=== PATIENT | female | born 1990 | race Caucasian/White ===

== ENCOUNTER 2022-05-17 10:50 | Inpatient (IN) | payer OTHER, SELFPAY ==
[2022-05-17] VITALS (59 sets, daily range): BP systolic 88–107; BP diastolic 51–74; PULSE 80–120; RESP 17–26; TEMP 36.5–37.9; O2SAT 94–100; BMI 28.3; BMI 29.7
--- NOTE | 2022-05-17 11:37 | W.ED.BACK ---
HPI - Back Pain/Injury General: Chief Complaint: Back Pain/Injury Stated Complaint: Extreme lower back pain and throwing up Time Seen by Provider: 05/17/22 11:30 History of Present Illness: 31-year-old female presents with left low back flank pain that now rates into her her right side into her abdomen. She reports that started 4 days ago. That couple days ago she had some vomiting and then improved and then yesterday she started vomiting again and vomited throughout the night in route here today. Patient has had difficulty keep anything down for the last couple days. She has no reports of fever or chills. No reports of diarrhea. Patient family reports that her mom has a history of kidney stones but no known kidney stones with patient. Associated symptoms: Reports abdominal pain, nausea and vomiting; Deny chills, fever(s) or hematuria Review of Systems Const: Reports: malaise; Denies: fever(s) or chills Eyes: Denies: change in vision ENMT: Denies: throat pain or ear or mastoid pain Card: Denies: chest pain or palpitations Resp: Denies: dyspnea, productive cough or wheezing GI: Reports: abdominal pain, nausea and vomiting; Denies: diarrhea : Reports: flank pain; Denies: hematuria Musc: Reports: back pain; Denies: neck pain or extremity pain Skin/Breast: Denies: rash or pruritus Neuro: Denies: headache(s) or dizziness Physical Exam Const: COMMON NORMALS: average body habitus GENERAL APPEARANCE: not comfortable HENMT: COMMON NORMALS: hearing grossly normal bilaterally and moist oral mucous membranes Chest: COMMONS NORMALS: normal inspection of the chest Resp: COMMON NORMALS: normal respiratory effort, No retractions and No use of accessory muscles Cardio: COMMON NORMALS: regular rate and regular rhythm RATE: regular rate RHYTHM: regular rhythm GI: PALPATION: Yes Tenderness to palpation present (GI) (Mild diffuse) : BLADDER/KIDNEY EXAM: Yes CVA tenderness bilateral Back/Pelvis: GENERAL BACK: Yes CVA tenderness Extremity: COMMON NORMALS: full ROM and capillary refill normal Neuro: COMMON NORMALS: moves all extremities and no focal motor deficits Psych: APPEARANCE: Yes grossly normal Skin: RASHES: rashes noted Multiple diffuse excoriations Rash type: Yes excoriation Rash distribution: Yes random Course Vital Signs: Vital signs: Vital Signs Temperature 97.7 F 05/17/22 11:01 Pulse Rate 97 05/17/22 13:32 Respiratory Rate 17 05/17/22 13:32 Blood Pressure 95/59 05/17/22 13:30 Pulse Oximetry 100 05/17/22 13:30 Oxygen Delivery Me thod 05/17/22 11:51 MDM - Back Pain/Injury Medical Decision Making Patient with acute pyelonephritis with acute kidney failure. Patient is given IV fluids, IV Rocephin. CT scan shows pyelonephritis with no other significant abnormality noted. Patient with elevated white count, procalcitonin and CRP but lactic is only 2. Patient to be admitted for further IV hydration and IV antibiotics. Patient was accepted by Dr. Rebollar. Patient was stable upon admission. Labs 05/17/22 11:41 05/17/22 11:41 Radiology Impressions Abdomen/Pelvis CT 05/17/22 12:33 IMPRESSION: Right perinephric stranding which can be a sign of acute pyelonephritis. Laboratory Results WBC 15.0 10^3/uL (4.0-10.0) H 05/17/22 11:41 RBC 4.37 10^6/uL (4.1-5.3) 05/17/22 11:41 Hgb 13.6 g/dL (11.5-15.3) 05/17/22 11:41 Hct 40.1 % (37.0-47.0) 05/17/22 11:41 MCV 91.8 fl (81-99) 05/17/22 11:41 MCH 31.1 pg (28.0-34.0) 05/17/22 11:41 MCHC 33.9 g/dL (30.0-36.0) 05/17/22 11:41 RDW 11.8 % (12.1-15.1) L 05/17/22 11:41 Plt Count 216 10^3/cmm (130-400) 05/17/22 11:41 MPV 10.4 fL (7.4-10.4) 05/17/22 11:41 Neut % (Auto) 93.2 % 05/17/22 11:41 Lymph % (Auto) 2.7 % 05/17/22 11:41 [place] % (Auto) 2.8 % 05/17/22 11:41 Eos % (Auto) 0.1 % 05/17/22 11:41 Baso % (Auto) 0.5 % 05/17/22 11:41 Neut # (Auto) 13.96 10^3/uL (1.8-7.7) H 05/17/22 11:41 Lymph # (Auto) 0.4 10^3/uL (0.8-4.8) L 05/17/22 11:41 [place] # (Auto) 0.4 10^3/uL (0.2-0.9) 05/17/22 11:41 Eos # (Auto) 0.0 10^3/uL (0.0-0.8) 05/17/22 11:41 Baso # (Auto) 0.1 10^3/uL (0.0-0.1) 05/17/22 11:41 Nucleated RBC % (auto) 0 % 05/17/22 11:41 Nucleated RBCs # 0.0 /100WBC 05/17/22 11:41 Sodium 128 mmol/L (136-145) L 05/17/22 11:41 Potassium 3.7 mmol/L (3.5-5.1) 05/17/22 11:41 Chloride 86 mmol/L (98-107) L 05/17/22 11:41 Carbon Dioxide 23 mmol/L (22-29) 05/17/22 11:41 Anion Gap 22.7 (5-19) H 05/17/22 11:41 BUN 36 mg/dL (6-20) H 05/17/22 11:41 Creatinine 5.6 mg/dL (0.5-0.9) H* 05/17/22 11:41 GFR Calculation 8.7 mL/min (90-130) L 05/17/22 11:41 Glucose 111 mg/dL (65-115) 05/17/22 11:41 Calculated Osmolality 275 mOsm/kg (285-295) L 05/17/22 11:41 Lactate 2.0 mmol/L (0.5-2.2) 05/17/22 11:41 Calcium 9.4 mg/dL (8.5-10.5) 05/17/22 11:41 Total Bilirubin 0.9 mg/dL (0.15-1.2) 05/17/22 11:41 AST 22 U/L (0-32) 05/17/22 11:41 ALT 24 U/L (0-33) 05/17/22 11:41 Alkaline Phosphatase 140 U/L (35-105) H 05/17/22 11:41 C-Reactive Protein 630.8 mg/L (0.0-4.9) H 05/17/22 11:41 Total Protein 7.9 g/dL (6.6-8.7) 05/17/22 11:41 Albumin 3.6 g/dL (3.5-5.2) 05/17/22 11:41 Globulin 4.3 g/dL (1.3-4.6) 05/17/22 11:41 Procalcitonin 23.75 ng/mL (0-0.5) H 05/17/22 11:41 HCG, Qual Negative (Negative) 05/17/22 12:06 Urine Color Yellow (Yellow) 05/17/22 12:06 Urine Appearance Cloudy (CLEAR) A 05/17/22 12:06 Urine pH 5 (5-7) 05/17/22 12:06 Ur Specific Richardson 1.020 (1.005-1.030) 05/17/22 12:06 Urine Protein 3+ (Negative) H 05/17/22 12:06 Urine Glucose (UA) Norm (Normal) 05/17/22 12:06 Urine Ketones Negative (Negative) 05/17/22 12:06 Urine Blood 2+ (Negative) H 05/17/22 12:06 Urine Nitrate Negative (Negative) 05/17/22 12:06 Urine Bilirubin 1+ (Negative) H 05/17/22 12:06 Urine Urobilinogen 1 mg/dL (Negative) H 05/17/22 12:06 Ur Leukocyte Esterase 1+ (Negative) H 05/17/22 12:06 Urine RBC 0-4 /hpf (0-2) H 05/17/22 12:06 Urine WBC 15-25 /hpf (0-5) H 05/17/22 12:06 Ur Squamous Epith Cells 0-4 /hpf (0-5) H 05/17/22 12:06 Amorphous Sediment Not Reportable 05/17/22 12:06 Urine Bacteria 4+ /hpf (NONE) H 05/17/22 12:06 Discharge Plan Discharge Patient Disposition: Admitted As Inpatient Clinical Impression: Pyelonephritis, Acute kidney injury Condition: Stable Coding Level of Care Code ED Hair Spring Cutter for Chg Fwd Exam Comprehensive
[2022-05-17] MEDS: metoclopramide 5 mg/mL SDV 2 mL 10 MG IVP (11:44)
[2022-05-17] MEDS: ketorolac 30 mg/mL INJ 15 MG IVP (11:46)
[2022-05-17] MEDS: lactated ringers 1,000 ML 999 ML IV ×2 (11:48→13:18)
[2022-05-17 12:00] LABS: Basophils # 0.1 10^3/uL (0.0-0.1); Basophils % 0.5 %; Eosinophils % 0.1 %; Hematocrit 40.1 % (37.0-47.0); Hemoglobin 13.6 g/dL (11.5-15.3); Lymphocytes # 0.4 10^3/uL (0.8-4.8); Lymphocytes % 2.7 %; Mean Corpuscular HGB Conc 33.9 g/dL (30.0-36.0); Mean Corpuscular Hemoglobin 31.1 pg (28.0-34.0); Mean Corpuscular Volume 91.8 fl (81-99); Mean Platelet Volume 10.4 fL (7.4-10.4); Monocytes # 0.4 10^3/uL (0.2-0.9); Monocytes % 2.8 %; Neutrophils # 13.96 10^3/uL (1.8-7.7); Neutrophils % 93.2 %; Nucleated Red Blood Cells % 0 %; Platelet Count 216 10^3/cmm (130-400); Red Blood Count 4.37 10^6/uL (4.1-5.3); Red Cell Distribution Width 11.8 % (12.1-15.1)
[2022-05-17 12:21] LABS: Alanine Aminotransferase 24 U/L (0-33); Albumin Level 3.6 g/dL (3.5-5.2); Alkaline Phosphatase 140 U/L (35-105); Anion Gap 22.7 (5-19); Aspartate Amino Transferase 22 U/L (0-32); Blood Urea Nitrogen 36 mg/dL (6-20); Calcium 9.4 mg/dL (8.5-10.5); Carbon Dioxide 23 mmol/L (22-29); Chloride 86 mmol/L (98-107); Globulin 4.3 g/dL (1.3-4.6); Glomerular Filtration Rate 8.7 mL/min (90-130); Glucose 111 mg/dL (65-115); Osmolality Calculated 275 mOsm/kg (285-295); Potassium 3.7 mmol/L (3.5-5.1); Sodium 128 mmol/L (136-145); Total Bilirubin 0.9 mg/dL (0.15-1.2); Total Protein 7.9 g/dL (6.6-8.7)
[2022-05-17 12:25] LABS: Procalcitonin 23.75 ng/mL (0-0.5)
[2022-05-17 12:28] LABS: Add Urine Culture? Yes; Add Urine Microscopic? YES; Bacteria Urine 4+ /hpf; Bilirubin Urine 1+ (Negative); Blood Urine 2+ (Negative); Glucose Urine UA Norm (Normal); HCG Qualitative Urine. Negative (Negative); Ketones Urine Negative (Negative); Leukocyte Esterase Urine 1+ (Negative); Nitrate Urine Negative (Negative); Protein Urine 3+ (Negative); RBC Urine 0-4 /hpf (0-2); Squamous Epithelial Cell Urine 0-4 /hpf (0-5); Urine Appearance Cloudy (CLEAR); Urine Color Yellow (Yellow); Urobilinogen Urine 1 mg/dL (Negative); WBC Urine 15-25 /hpf (0-5); pH Urine 5 (5-7)
--- NOTE | 2022-05-17 12:33 | CTR_ITS ---
PROCEDURE INFORMATION: Exam: CT Abdomen And Pelvis Without Contrast Exam date and time: 05/17/2022 1:08 PM Age: 31 years old Clinical indication: Pain; Other: Across lower back; Prior surgery; Surgery date: 6+ months; Surgery type: Tubal; Additional info: Hematuria, flank pain, concerns for pyelonephritis TECHNIQUE: Imaging protocol: Computed tomography of the abdomen and pelvis without contrast. Radiation optimization: All CT scans at this facility use at least one of these dose optimization techniques: automated exposure control; mA and/or kV adjustment per patient size (includes targeted exams where dose is matched to clinical indication); or iterative reconstruction. COMPARISON: No relevant prior studies available. RADIATION DOSE METRICS: Total DLP (mGy-cm): 654.97 FINDINGS: Lungs: Bilateral dependent atelectasis. Liver: The liver is prominent in size but homogeneous. Gallbladder and bile ducts: No calcified gallstones, gallbladder wall thickening, or pericholecystic inflammation. No biliary ductal dilation. Pancreas: No pancreatic enlargement or ductal dilatation. Spleen: The spleen is prominent in size but homogeneous. Adrenal glands: No adrenal mass. Kidneys and ureters: No hydronephrosis or hydroureter. No renal or ureteral calculus. There is right perinephric stranding, best appreciated adjacent to the inferior pole, which can be a sign of acute pyelonephritis. Stomach and bowel: No bowel obstruction or diverticulitis. Appendix: The appendix is not clearly visualized. Intraperitoneal space: No ascites or pneumoperitoneum. Vasculature: No abdominal aortic aneurysm. Lymph nodes: No pathologically enlarged lymph nodes. Urinary bladder: No urinary bladder calculus or wall thickening. Reproductive: Unremarkable as visualized. Bones/joints: No acute osseous abnormality. Soft tissues: No acute soft tissue abnormality. CT/CT abdomen pelvis wo con [id number] IMPRESSION: Right perinephric stranding which can be a sign of acute pyelonephritis.
[2022-05-17 12:34] LABS: C Reactive Protein 630.8 mg/L (0.0-4.9)
[2022-05-17] MEDS: cefTRIAXone 1,000 MG in sodium chloride 0.9% (plus) 50 ML 100 MG IV (12:52)
--- NOTE | 2022-05-17 14:29 | P.HP_ITS ---
Providers/Chief Complaint Admitting Physician: Rick Rebollar MD Chief Complaint: Extreme lower back pain and throwing up History of Present Illness Ryanne Rico is a 31 year old female with no significant past medical history who presents to [facility] due to fatigue, malaise, right lower back pain, flank pain, nausea, vomiting, inability keep down solids or liquids for the last 48 hours. Reports subjective fevers, chills, nausea, vomiting, no abdominal pain, but does have severe back pain, right flank pain. She does vape, denies drug use, no alcohol use. She has not been Able to keep anything solid or liquid down for the last 24 to 48 hours. She denies being , she has never had UTIs in the past, no history of nephrolithiasis Review of Systems Const: Reports: fever(s), chills and body aches Card: Denies: chest pain Resp: Denies: dyspnea GI: Denies: abdominal pain Medications/Allergies Allergies Allergy/AdvReac Type Severity Reaction Status Date / Time No Known Allergies Allergy Verified 05/17/22 11:01 PFSH Acute PFSH: Surgical History (Updated 05/17/22 @ 14:31 by Rick Rebollar MD) No pertinent past surgical history Family History (Updated 05/17/22 @ 14:31 by Rick Rebollar MD) Other Hypertension Social History (Updated 05/17/22 @ 14:31 by Rick Rebollar MD) Smoking and tobacco status: never smoked Alcohol intake: never Substance/Drug Use: never Vitals/I&O/Wt Last Vital Signs Temp 97.7 F 05/17/22 11:01 Pulse 97 05/17/22 13:32 Resp 17 05/17/22 13:32 BP 95/59 05/17/22 13:30 Pulse Ox 100 05/17/22 13:30 O2 Del Method 05/17/22 11:51 05/16/22 05/17/22 05/17/22 22:59 06:59 14:59 Intake Total 1050 / 1050 Balance 1050 / 1050 Weight last 48 hrs Weight 72.575 kg Physical Exam Const: COMMON NORMALS: no acute distress and patient oriented x3 HENMT: COMMON NORMALS: normocephalic HEAD & SCALP: normocephalic Neck/C-Spine: COMMON NORMALS: no JVD Resp: COMMON NORMALS: normal respiratory effort, No retractions, No use of accessory muscles and clear to auscultation bilaterally AUSCULTATION: clear to auscultation bilaterally Cardio: COMMON NORMALS: no JVD, regular rate, regular rhythm, S1 normal heart sound present and S2 normal heart sound present RATE: regular rate RHYTHM: regular rhythm HEART SOUNDS: S1 normal heart sound present and S2 normal hear t sound present GI: COMMON NORMALS: Normal to inspection, nondistended, normoactive bowel sounds present, Soft to palpation and non-tender PALPATION: Yes Soft to palpation and Yes No hepatosplenomegaly present Back/Pelvis: OTHER: Bilateral flank pain Extremity: COMMON NORMALS: capillary refill normal and no pedal edema Neuro: COMMON NORMALS: patient oriented x3, CN's II-XII intact bilaterally and moves all extremities Psych: COMMON NORMALS: mental status grossly normal Data 05/17/22 11:41 05/17/22 11:41 A&P Assessment and plan (1) Pyelonephritis: (2) Acute kidney injury: Plan Right pyelonephritis, UTI, SAMANTHA -CT scan no evidence of obstructive uropathy, no hydronephrosis -Admit to ICU for close monitoring -Monitor urine output closely -Monitor creatinine monitor serum sodium -Monitor CRP, Pro-Wero -Expand antibiotic coverage to meropenem and vancomycin -mrsa nares pcr -IV hydration 150 cc an hour -Monitor for fevers -Follow urine cultures, blood cultures Attestations Medical Necessity Statement*: Patient requires hospitalization, inpatient, greater than 2 midnights, for pyelonephritis, SAMANTHA Coding Level of Care Code Acute Welder Gas Automatic for [facility] Diagnoses Pyelonephritis N12 Acute kidney injury N17.9
[2022-05-17 14:51] LABS: Estmated Average Glucose 91; Hemoglobin A1C 4.8 % (4.0-6.0)
[2022-05-17 15:00] LABS: Thyroid Stimulating Hormone 1.17 uIU/mL (0.27-4.20)
[2022-05-17] MEDS: ondansetron 2 mg/ML SDV 2 mL 4 MG IVP (15:17)
[2022-05-17 15:21] LABS: Ketone (Acetest) Serum Negative (Negative)
[2022-05-17] MEDS: sodium chloride 0.9% 1,000 ML 125 ML IV ×2 (15:22→22:30)
[2022-05-17] MEDS: pantoprazole 40 mg SDV IVP (15:22)
[2022-05-17] MEDS: enoxaparin 40 mg/0.4 mL Syringe SUBCUT (15:23)
[2022-05-17] MEDS: meropenem 1,000 MG in sodium chloride 0.9% (plus) 50 ML 100 MG IV ×2 (15:24→22:30)
[2022-05-17] MEDS: acetaminophen 325 mg Tablet 650 MG PO ×2 (15:27→23:27)
[2022-05-17 15:35] LABS: Creatine Phosphokinase 26 U/L (26-192)
[2022-05-17] MEDS: vancomycin 1,000 MG in sodium chloride 0.9% 250 ML 250 MG IV (15:49)
--- NOTE | 2022-05-17 16:08 | PC.NURSE ---
Patient came to ICU at 1515 via gurney and ER staff. Patient is alert and oriented to person, place, time, and situation. HR: 97, BP: 104/65, RR: 20, saturation: 100%, Temp: 98.1. Patient complains of pain 4 or 5/10. Tylenol given. Patient complains of nausea, Zofran given. Fluids and antibiotics started, patient educated on treatment plan.
--- NOTE | 2022-05-17 17:28 | PC.NURSE ---
Late note.... Patient has not voided since 1230 in the ER when a straight cath was performed. Nurse Bladder scanned patient at 1430. SHows 63 mL of urine retained.
--- NOTE | 2022-05-17 18:29 | PC.NURSE ---
Nurse bladder scanned patient at 1830. SHows 53mL retained. A distended bladder is not palpated, patient does not report any urinary discomfort.
[2022-05-17] MEDS: morphine 4 mg/mL SDV 1 mL 2 MG IVP (19:10)
[2022-05-18] VITALS (55 sets, daily range): BP systolic 89–127; BP diastolic 47–84; PULSE 100–128; RESP 12–35; TEMP 36.7–38.3; O2SAT 92–100
[2022-05-18] MEDS: morphine 4 mg/mL SDV 1 mL 2 MG IVP ×6 (00:58→23:03)
--- NOTE | 2022-05-18 04:12 | PC.NURSE ---
Patient assisted to bedside commode by two nurses. Patient is very weak but was able to pivot to seat with assist. Patient voided 200 dark flory foul smelling urine with sediment. Patient complained of pain while urinating.
[2022-05-18 05:47] LABS: Basophils % 0.5 %; Eosinophils % 0.6 %; Hematocrit 32.7 % (37.0-47.0); Hemoglobin 10.7 g/dL (11.5-15.3); Lymphocytes # 0.2 10^3/uL (0.8-4.8); Lymphocytes % 3.2 %; Mean Corpuscular HGB Conc 32.7 g/dL (30.0-36.0); Mean Corpuscular Hemoglobin 31.2 pg (28.0-34.0); Mean Corpuscular Volume 95.3 fl (81-99); Mean Platelet Volume 10.4 fL (7.4-10.4); Monocytes # 0.4 10^3/uL (0.2-0.9); Monocytes % 5.7 %; Neutrophils # 5.77 10^3/uL (1.8-7.7); Neutrophils % 88.6 %; Nucleated Red Blood Cells % 0 %; Platelet Count 121 10^3/cmm (130-400); Red Blood Count 3.43 10^6/uL (4.1-5.3); Red Cell Distribution Width 12.3 % (12.1-15.1); White Blood Count 6.5 10^3/uL (4.0-10.0)
[2022-05-18] MEDS: meropenem 1,000 MG in sodium chloride 0.9% (plus) 50 ML 100 MG IV ×3 (06:02→23:04)
[2022-05-18] MEDS: sodium chloride 0.9% 1,000 ML 125 ML IV ×2 (06:03→14:16)
[2022-05-18 06:09] LABS: Anion Gap 19.7 (5-19); Blood Urea Nitrogen 43 mg/dL (6-20); Calcium 7.9 mg/dL (8.5-10.5); Carbon Dioxide 16 mmol/L (22-29); Chloride 94 mmol/L (98-107); Glomerular Filtration Rate 10.2 mL/min (90-130); Glucose 92 mg/dL (65-115); Magnesium 1.4 mg/dL (1.7-2.3); Osmolality Calculated 272 mOsm/kg (285-295); Phosphorus 4.6 mg/dL (2.5-4.5); Potassium 3.7 mmol/L (3.5-5.1); Sodium 126 mmol/L (136-145)
[2022-05-18 06:16] LABS: Procalcitonin 20.96 ng/mL (0-0.5)
--- NOTE | 2022-05-18 07:48 | USR_ITS ---
PROCEDURE INFORMATION: Exam: US Retroperitoneal; Complete; Kidneys and Bladder Exam date and time: 05/18/2022 9:43 AM Age: 31 years old Clinical indication: Abnormal findings; Abnormal radiologic finding of the abdomen; Radiologic exam and body structure: CT abd; Additional info: Perry TECHNIQUE: Imaging protocol: Real-time ultrasound of the retroperitoneum with image documentation. Complete exam focused on the kidneys and bladder. COMPARISON: CT abdomen pelvis con [id number] 05/17/2022 1:08 PM FINDINGS: Right kidney: Normal. No stones. No hydronephrosis. 13.7 cm x 5.3 cm x 7.1 cm Left kidney: Normal. No stones. No hydronephrosis. 12.9 cm x 5.3 cm x 5.9 cm Urinary bladder: Unremarkable. Bilateral ureteral jets are visible US/US renal BI* [id number] IMPRESSION: Unremarkable kidneys and bladder.
[2022-05-18] MEDS: acetaminophen 325 mg Tablet 650 MG PO (08:22)
[2022-05-18] MEDS: magnesium sulfate premix 4 GM/100 ML PREMIX IV (08:59)
[2022-05-18] MEDS: ondansetron 2 mg/ML SDV 2 mL 4 MG IVP ×2 (09:09→19:43)
--- NOTE | 2022-05-18 09:56 | PM.CONSULT ---
Providers/Reason For Consult Consulting Physician/Specialty*: Juju Buck DO, telenephrology Reason for Consult*: Acute kidney injury, pylelonephritis, hyponatremia Requesting Physician: Rick Rebollar MD Attending Physician: Rick Rebollar MD History of Present Illness History of Present Illness Ryanne Rico is a 31 year old female admitted with severe back pain, minimal oral intake for a couple of days. No prescribed meds as oupatient. Was taking one ibuprofen + tylenol daily. Diagnosed with pyelonephritis. Minimal urine output. Review of Systems Narrative: severe back pain Medications/Allergies Home Medications Medication Instructions Recorded Confirmed Last Taken Type No Known Home Medications 05/17/22 05/17/22 Unknown History Allergies Allergy/AdvReac Type Severity Reaction Status Date / Time No Known Allergies Allergy Verified 05/17/22 11:01 Current Medications Generic Name Dose Route Start Last Admin Trade Name Freq PRN Reason Stop Dose Admin Acetaminophen 650 mg 05/17/22 14:06 05/18/22 08:22 Acetaminophen 325 Mg Tablet PO 650 mg Q6H PRN Administration Mild/Mod Pain Or Temp >/= 101 Enoxaparin Sodium 40 mg 05/17/22 15:00 05/17/22 15:23 Enoxaparin 40 Mg/0.4 Ml Syringe SUBCUT 40 mg Q24H ANUSHA Administration Sodium Chloride 1,000 mls @ 125 mls/hr 05/17/22 14:37 05/18/22 06:03 Sodium Chloride 0.9% IV 125 mls/hr .Q8H ANUSHA Administration Meropenem 1,000 mg/ Sodium 50 mls @ 100 mls/hr 05/17/22 15:00 05/18/22 07:05 Chloride IV Infused Q8H ANUSHA Infusion Vancomycin HCl 1,000 mg/ 250 mls @ 250 mls/hr 05/17/22 16:00 05/18/22 00:19 Sodium Chloride IV Infused Q48H ANUSHA Infusion Magnesium Sulfate 4 gm in 100 mls @ 50 mls/hr 05/18/22 08:30 05/18/22 08:59 Magnesium Sulfate Premix IV 05/18/22 10:29 50 mls/hr ONCE ONE Administration Morphine Sulfate 2 mg 05/18/22 08:31 05/18/22 09:04 Morphine 4 Mg/Ml Sdv 1 Ml IVP 2 mg Q2H PRN Administration SEVERE PAIN Ondansetron HCl 4 mg 05/17/22 14:22 05/18/22 09:09 Ondansetron 2 Mg/Ml Sdv 2 Ml IVP 4 mg Q8H PRN Administration vomiting, or N/V if npo Pantoprazole Sodium 40 mg 05/17/22 14:30 05/17/22 15:22 Pantoprazole 40 Mg Sdv IVP 40 mg Q24H ANUSHA Administration PFSH Acute PFSH: Surgical History No pertinent past surgical history Family History Other Hypertension Social History Smoking and tobacco status: never smoked Alcohol intake: never Substance/Drug Use: never Vitals/I&O/Wt Last Vital Signs Temp 101.0 F H 05/18/22 08:00 Pulse 116 H 05/18/22 08:00 Resp 20 H 05/18/22 09:04 BP 109/69 05/18/22 08:00 Pulse Ox 98 05/18/22 08:00 O2 Del Method 05/18/22 08:00 05/17/22 05/18/22 05/18/22 22:59 06:59 14:59 Intake Total 1321.667 / 3371.667 1483.75 / 4855.417 250 / 250 Output Total 200 / 200 Balance 1321.667 / 3371.667 1283.75 / 4655.417 250 / 250 Weight last 48 hrs Weight 78.471 kg Weight 72.575 kg Physical Exam Const: COMMON NORMALS: alert Resp: COMMON NORMALS: clear to auscultation bilaterally AUSCULTATION: clear to auscultation bilaterally Cardio: COMMON NORMALS: regular rhythm RATE: tachycardic RHYTHM: regular rhythm Extremity: OTHER: no edema Neuro: SENSORIUM/ORIENTATION: Yes alert Data 05/18/22 05:43 05/18/22 05:43 Other Labs: CK 26, LFT normal, lactate 1.6 Ca 7.9, phos 4.6, Mg 1.4 Micro: Microbiology 05/17/22 12:06 Urine Culture - Preliminary Urine,Clean Catch Gram Negative Rods 05/17/22 16:07 Blood Culture - Preliminary Blood SPECIMEN COLLECTED 05/17/22 16:00 Blood Culture - Preliminary Blood SPECIMEN COLLECTED CT Abd/Pel: Radiologist's impression: Kidneys and ureters: No hydronephrosis or hydroureter. No renal or ureteral calculus. There is right perinephric stranding, best appreciated adjacent to the inferior pole, which can be a sign of acute pyelonephritis. Other data: seen via telemedicine with assistance of RN at bedside A&P Assessment and plan (1) Acute kidney injury: Plan 1. Acute kidney injury: volume depletion + sepsis, oliguric. I/O + 5L 2. Pyelonephritis: GNR, ID and sensitivities pending, remains febrile 3. Hyponatremia 4. Metabolic acidosis Recommend: urine Na/Cr, michaels, renal ultrasound. F/U culture. Can discontinue vancomycin. consider one dose aminoglycoside while awaiting culture results. Renal ultrasound ordered. Repeat BMP later today Consult Attestations Medical Necessity Statement: critically ill in ICU Time Spent in Patient Care: 16 - 35 minutes Coding Level of Care Code Acute Operator Electronic Warfare for [facility] Diagnoses Acute kidney injury N17.9
[2022-05-18 10:22] LABS: Lactic Sepsis W/Reflex 1.6 mmol/L (0.5-2.2)
[2022-05-18 11:48] LABS: Creatinine Urine, Random 146 mg/dL (28-217); Urine Random Sodium 32 mmol/L
--- NOTE | 2022-05-18 12:43 | PC.NURSE ---
Patient self administered flu swab after much encouragement, bleeding from nostril. Sample sent to lab. Unable to obtain COVID swab due to patient refusal.
[2022-05-18 13:03] LABS: Influenza A by IFA negative (Negative); Influenza B by IFA negative (Negative)
--- NOTE | 2022-05-18 13:41 | PC.NURSE ---
16 F, Contreras catheter placed. 20ml dark, cloudy urine returned. Patient expressed much discomfort during placement.
[2022-05-18] MEDS: pantoprazole 40 mg SDV IVP (14:15)
[2022-05-18] MEDS: enoxaparin 40 mg/0.4 mL Syringe SUBCUT (15:50)
--- NOTE | 2022-05-18 15:53 | P.PN_ITS ---
Subjective Subjective: Patient was seen this morning she is alert oriented x2, she is a bit more confused compared to yesterday, but can follow commands, she has a lot of back pain, her urine output remains a little below 200 cc in the last shift, at bedside, discussed the case in detail with him, will consult n ephrology, we will see how she does but she potentially might require dialysis but will continue to monitor her Vitals/I&O/Wt Last Vital Signs Temp 98.1 F 05/18/22 12:30 Pulse 117 H 05/18/22 14:59 Resp 12 05/18/22 14:15 BP 106/65 05/18/22 12:30 Pulse Ox 99 05/18/22 14:15 O2 Del Method 05/18/22 12:30 05/18/22 05/18/22 05/18/22 06:59 14:59 22:59 Intake Total 1483.75 / 4855.417 1574 / 1574 Output Total 200 / 200 120 / 120 Balance 1283.75 / 4655.417 1454 / 1454 Weight last 48 hrs Weight 78.471 kg Weight 72.575 kg Physical Exam Const: COMMON NORMALS: no acute distress ORIENTATION/CONSCIOUSNESS: Yes awake, Yes oriented to person and Yes oriented to place; not oriented to time Resp: COMMON NORMALS: normal respiratory effort, No retractions, No use of accessory muscles and clear to auscultation bilaterally AUSCULTATION: clear to auscultation bilaterally Cardio: COMMON NORMALS: regular rate, regular rhythm, S1 normal heart sound present and S2 normal heart sound present RATE: regular rate RHYTHM: regular rhythm HEART SOUNDS: S1 normal heart sound present and S2 normal heart sound present GI: COMMON NORMALS: Normal to inspection, nondistended, normoactive bowel sounds present and non-tender Extremity: COMMON NORMALS: no pedal edema Neuro: SENSORIUM/ORIENTATION: Yes oriented to person, Yes oriented to place and No oriented to time Urinary Catheter Management: Contreras: Cath Placed During This Visit: yes Urinary Catheter Date of Insertion: 05/18/22 Urinary Catheter Time of Insertion: 12:15 Data 05/18/22 05:43 05/18/22 05:43 Micro: Microbiology 05/17/22 12:06 Urine Culture - Preliminary Urine,Clean Catch Gram Negative Rods 05/17/22 16:07 Blood Culture - Preliminary Blood SPECIMEN COLLECTED 05/17/22 16:00 Blood Culture - Preliminary Blood SPECIMEN COLLECTED A&P Assessment and plan (1) Pyelonephritis: (2) Acute kidney injury: Plan Right pyelonephritis, UTI, SAMANTHA -CT scan no evidence of obstructive uropathy, no hydronephrosis -Admit to ICU for close monitoring -Monitor urine output closely -Monitor creatinine monitor serum sodium -Monitor CRP, Pro-Wero -Expand antibiotic coverage to meropenem and vancomycin -mrsa nares pcr -IV hydration 125 cc an hour -Repeat renal ultrasound, consult nephrology -Monitor for fevers -Follow urine cultures, blood cultures Attestations Medical Necessity Statement*: Patient requires hospitalization for SAMANTHA, right pyelonephritis Coding Level of Care Code Acute 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
[2022-05-18 16:03] LABS: Anion Gap 16.5 (5-19); Blood Urea Nitrogen 45 mg/dL (6-20); Calcium 8.1 mg/dL (8.5-10.5); Carbon Dioxide 20 mmol/L (22-29); Chloride 90 mmol/L (98-107); Glucose 100 mg/dL (65-115); Osmolality Calculated 268 mOsm/kg (285-295); Potassium 3.5 mmol/L (3.5-5.1); Sodium 123 mmol/L (136-145)
[2022-05-18] MEDS: HYDROmorphone 1 mg/mL INJ 1 mL 0.5 MG IVP ×2 (17:42→19:58)
[2022-05-18] MEDS: linezolid premix 600 MG/300 ML PREMIX 300 MG IV (18:00)
[2022-05-18 18:03] LABS: Amphetamines Screen Urine Positive (Negative); Barbiturates Screen Urine Negative (Negative); Benzodiazepines Screen Urine Negative (Negative); Cocaine Screen Urine Negative (Negative); Opiate Screen Urine Positive (Negative); PCP Screen Urine Negative (Negative); THC Screen Urine Negative (Negative)
[2022-05-18 21:28] LABS: Sodium 124 mmol/L (136-145)
--- NOTE | 2022-05-18 22:06 | PC.NURSE ---
Pt continues to be in severe pain. Pt and family expressed that they did not want Dilaudid q2h because they feel like it does not help. Pt and @bedside requested that they switch back to the Morphine q2h. This RN explained that Dilaudid is stronger than Morphine and the pt states that she beleives the Dilaudid is causing her pain to get worse. This RN educated pt and family on the disease process. Dr. Cummins made aware of the situation.
[2022-05-19] VITALS (52 sets, daily range): BP systolic 96–127; BP diastolic 57–85; PULSE 79–124; RESP 13–28; TEMP 36.3–37.4; O2SAT 87–100
[2022-05-19 01:39] LABS: Sodium 125 mmol/L (136-145)
[2022-05-19] MEDS: morphine 4 mg/mL SDV 1 mL 2 MG IVP ×2 (03:04→05:45)
[2022-05-19] MEDS: sodium chloride 0.9% 1,000 ML 60 ML IV ×2 (03:05→23:13)
--- NOTE | 2022-05-19 04:42 | PM.PN ---
Subjective Subjective: feeling a little better Vitals/I&O/Wt Last Vital Signs Temp 98.9 F 05/18/22 22:00 Pulse 119 H 05/19/22 00:30 Resp 17 05/19/22 03:04 BP 120/68 05/19/22 00:30 Pulse Ox 94 05/19/22 03:04 O2 Del Method 05/19/22 00:30 05/18/22 05/18/22 05/19/22 14:59 22:59 06:59 Intake Total 1574 / 1574 2164.583 / 3738.583 585.417 / 4324.000 Output Total 120 / 120 150 / 270 Balance 1454 / 1454 2014.583 / 3468.583 585.417 / 4054.000 Weight last 48 hrs Weight 78.471 kg Weight 72.575 kg Physical Exam Const: COMMON NORMALS: alert Extremity: GENERAL: Yes edema Neuro: SENSORIUM/ORIENTATION: Yes alert Urinary Catheter Management: Contreras: Cath Placed During This Visit: yes Reason for Continuing Indwelling Catheter: Accurate Measurement of Urinary Output in Critically Ill Patients Urinary Catheter Date of Insertion: 05/18/22 Urinary Catheter Time of Insertion: 12:15 Data 05/18/22 05:43 05/19/22 01:18 Other Labs: FeNa < 1% alb 2, bili 1.5, calcium 7.7, phos 3.5, Mg 2.5 Micro: Microbiology 05/17/22 16:00 Blood Culture - Preliminary Blood 05/17/22 16:07 Blood Culture - Preliminary Blood NEGATIVE TO DATE 05/17/22 12:06 Urine Culture - Preliminary Urine,Clean Catch Gram Negative Rods US: Radiologist's impression: Right kidney: Normal. No stones. No hydronephrosis.? 13.7 cm x 5.3 cm x 7.1 cm Left kidney: Normal. No stones. No hydronephrosis.? 12.9 cm x 5.3 cm x 5.9 cm Urinary bladder: Unremarkable.? Bilateral ureteral jets are visible CT Abd/Pel: Radiologist's impression: Kidneys and ureters: No hydronephrosis or hydroureter. No renal or ureteral calculus. There is right perinephric stranding, best appreciated adjacent to the inferior pole, which can be a sign of acute pyelonephritis. A&P Assessment and plan (1) Acute kidney injury: seen via telemedicine with assistance of RN at bedside Plan 1. Acute kidney injury: oliguric. volume depletion + sepsis, I/O + 8L, urine output slightly improved 2. Pyelonephritis: UC e.coli. BC 06/30 staph epi probably contaminant. Tmax 99 3. Hyponatremia: serum sodium stable 4. Metabolic acidosis Recommend: IVF NSS decreased to 60 ml/hr. repeat labs in AM Attestations Medical Necessity Statement*: see above Time Spent in Patient Care: 16 - 35 minutes Coding Level of Care Code Acute Manager Of Drilling for Hannah Prado Diagnoses Acute kidney injury N17.9
[2022-05-19] MEDS: linezolid premix 600 MG/300 ML PREMIX 300 MG IV ×2 (05:02→19:09)
[2022-05-19 05:48] LABS: Basophils % 0.4 %; Eosinophils % 0.9 %; Hematocrit 29.6 % (37.0-47.0); Hemoglobin 10.1 g/dL (11.5-15.3); Lymphocytes # 0.4 10^3/uL (0.8-4.8); Lymphocytes % 8.2 %; Mean Corpuscular HGB Conc 34.1 g/dL (30.0-36.0); Mean Corpuscular Hemoglobin 30.9 pg (28.0-34.0); Mean Corpuscular Volume 90.5 fl (81-99); Mean Platelet Volume 10.3 fL (7.4-10.4); Monocytes # 0.2 10^3/uL (0.2-0.9); Monocytes % 5.3 %; Neutrophils # 3.41 10^3/uL (1.8-7.7); Neutrophils % 75.9 %; Nucleated Red Blood Cells % 0 %; Platelet Count 152 10^3/cmm (130-400); Red Blood Count 3.27 10^6/uL (4.1-5.3); Red Cell Distribution Width 12.7 % (12.1-15.1); White Blood Count 4.5 10^3/uL (4.0-10.0)
[2022-05-19 06:02] LABS: Alanine Aminotransferase 21 U/L (0-33); Alkaline Phosphatase 161 U/L (35-105); Anion Gap 17.4 (5-19); Aspartate Amino Transferase 25 U/L (0-32); Blood Urea Nitrogen 47 mg/dL (6-20); C Reactive Protein 305.1 mg/L (0.0-4.9); Calcium 7.7 mg/dL (8.5-10.5); Carbon Dioxide 19 mmol/L (22-29); Chloride 91 mmol/L (98-107); Globulin 3.2 g/dL (1.3-4.6); Glomerular Filtration Rate 9.5 mL/min (90-130); Glucose 142 mg/dL (65-115); Magnesium 2.5 mg/dL (1.7-2.3); Osmolality Calculated 273 mOsm/kg (285-295); Phosphorus 3.5 mg/dL (2.5-4.5); Potassium 3.4 mmol/L (3.5-5.1); Sodium 124 mmol/L (136-145); Total Bilirubin 1.5 mg/dL (0.15-1.2); Total Protein 5.2 g/dL (6.6-8.7)
[2022-05-19] MEDS: meropenem 1,000 MG in sodium chloride 0.9% (plus) 50 ML 100 MG IV ×3 (06:13→23:12)
[2022-05-19 06:27] LABS: NT Pro B Type Natriuretic Pept 8820 pg/mL (0-125); Procalcitonin 15.23 ng/mL (0-0.5)
[2022-05-19 06:38] LABS: Slide Review Slide Review Perform
--- NOTE | 2022-05-19 07:00 | USCV_ITS ---
Ryanne Rico Age: 31 Gender: F : 1990 Exam Date: 05/19/2022 09:17 Ordering Phys: Rick Rebollar MD Technologist: Exam Location: [facility] – [place] Indication: ? veg chest pain BP: 128 / 78 HR: 104 Rhythm: Sinus Technical Quality: Adequate MEASUREMENTS (Male / Female) Normal Values 2D ECHO LV Diastolic Diameter PLAX 4.7 cm 4.2 - 5.9 / 3.9 - 5.3 cm LV Systolic Diameter PLAX 3.0 cm IVS Diastolic Thickness 1.1 cm 0.6 - 1.0 / 0.6 - 0.9 cm IVS Systolic Thickness 1.2 cm LVPW Diastolic Thickness 0.8 cm 0.6 - 1.0 / 0.6 - 0.9 cm LVPW Systolic Thickness 1.4 cm LVOT Diameter 2.0 cm LV Ejection Fraction 2D Teich 65.1 % LV Ejection Fraction MOD 2C 68.0 % LV Ejection Fraction 2C AL 67.4 % LA Diameter 2.9 cm Aorta at Sinotubular Diameter 2.7 cm IVC Diameter 1.8 cm M-MODE Aortic Annulus Diameter 2.9 cm LA Ao Ratio MM 1.0 MV E Point Septal Separation 0.8 cm DOPPLER AV Peak Velocity 111.0 cm/s LVOT Peak Velocity 90.0 cm/s AV Area Cont Eq vti 3.0 cm squared AV Area Cont Eq pk 2.6 cm squared MV Area PHT 5.0 cm squared Mitral E to A Ratio 1.2 MV E' Velocity 57.5 cm/s Mitral E to MV E' Ratio 4.8 Mitral E to LV E' Lateral Ratio 4.3 Mitral E to LV E' Septal Ratio 5.3 TR Peak Velocity 170.7 cm/s TR Peak Gradient 11.7 mmHg TV Peak E Velocity 125.0 cm/s Right Atrial Pressure 3.0 mmHg Pulmonary Artery Systolic Pressu 14.7 mmHg RV Acceleration Time 0.2 s FINDINGS Left Ventricle Left venticle is normal in size. LV systolic function is normal with EF of 55-60%. No regional wall motion abnormalities seen. Right Ventricle RV is normal in size and function Right Atrium Normal in size Left Atrium Normal in size Mitral Valve Structurally normal mitral valve. No significant stenosis or regurgitation. Aortic Valve Structurally normal aortic valve.No signficant stenosis or regurgitation. Tricuspid Valve Grossly normal Trace tricuspid regurgitation. Insufficient TR jet to calculate RVSP Pulmonic Valve Not well visualized Pericardium Normal Aorta Normal in size IVC CONCLUSIONS LV systolic function is normal with EF of 55-60% Trace tricuspid regurgitation. No significant valvular disease noted No comparison studies are available Daniele Vizcarra MD (Electronically Signed) Final Date: 20 May 2022 11:49 S
[2022-05-19] MEDS: acetaminophen 325 mg Tablet 650 MG PO ×2 (08:15→21:11)
[2022-05-19] MEDS: ondansetron 2 mg/ML SDV 2 mL 4 MG IVP (08:18)
--- NOTE | 2022-05-19 10:19 | PC.CHAP ---
Pastoral Care Encounter/Spiritual Assessment Type of Contact [] Declined electrostatic powder coating technician visit [] Patient/Family/Request visit [] Outpatient visit [] Follow-up visit [] Physician referral [] Code/Alert [x] Routine visit [] Staff referral [] Actively dying [] Patient sleeping [x] Family support [] [] Out of room [] Palliative care [] [] Receiving care in room [] Pre-surgical visit [] Trauma [] Long length of stay [x] ICU visit [x] Other: PT on phone.. prayed for PT with friend.. Relational/Emotional Strength [] Patient feels connected with others/family/visitors/staff [] Distress [] Loneliness/isolation [] Abandonment Spirituality of Patient [] Person of Alyse [] Attends Denominational of their Alyse [] Believes in Prayer [] Reads Bible or Mu-Ism materials [] There are Spiritual issues to be addressed Electrical Installation Supervisor Interventions [x] Prayer [] Active listening [] Non-anxious presence [] Spiritual/emotional support [] Crisis/trauma care [] Spiritual counseling [] Bereavement support [] Provided bereavement packet [] Provided Bible/devotional materials [] Provided toy/stuffed animal, coloring book to patient or family member [] Provided Communion [] Anointing/Adak [] Salvation [x] Completed spiritual assessment [] Other: Impact on Illness or Injury [] Angry [] Fearful [] Anxious [] Often cries [] Exhaustion [] Unable to work [] Unable to attend buddhism [] Unable to walk/stand [] Unable to read [] Unable to drive [] Unable to eat/drink [] Unable to sleep [] Unable to be with family [] Patient intubated [] Other: Summary Time spent with patient
--- NOTE | 2022-05-19 10:32 | PC.NURSE ---
Upon morming assessment, patient was very lethargic. Often reporting pain but when nurse comes back to give pain medication, she is sleeping and difficult to rouse. Nurse gave tylenol instead of morphine due to concerns about depressed mental status.
[2022-05-19] MEDS: morphine 4 mg/mL SDV 1 mL 1 MG IVP (10:35)
--- NOTE | 2022-05-19 10:35 | CT_ITS ---
WS: [id number] CT LUMBAR SPINE, noncontrast. HISTORY: staph blood culture TECHNIQUE: Contiguous 2.5 mm axial imaging are performed. Sagittal and coronal reformats are submitte d and reviewed. All CT scans at [facility] use at least one of these dose optimization techni ques: automated exposure control; mA and/or kV adjustment per patient size (includes targeted exams w here dose is matched to clinical indication); or iterative reconstruction. IV contrast: None DLP: 762.92 mGy.cm COMPARISON: None available. Normal lumbar alignment with no loss of disc space height or vertebral body height. L1-2: Normal. L2-3: Normal. L3-4: Normal. L4-5: Mild disc bulging with very small foraminal disc protrusions. No stenosis. L5-S1: Mild foraminal narrowing. Mild soft tissue stranding around each kidney. CT/CT lumbar spine wo con* [id number] IMPRESSION: 1. No significant central or foraminal stenosis. 2. No bone destruction. 3. Very minimal soft tissue stranding around the kidneys.
--- NOTE | 2022-05-19 10:35 | CT_ITS ---
WS: [id number] CT THORACIC SPINE HISTORY: staph blood culture TECHNIQUE: Contiguous 2.5 mm axial images are reviewed to thoracic spine. Images are reformatted in s agittal and coronal planes. All CT scans at [facility] use at least one of these dose optimiz ation techniques: automated exposure control; mA and/or kV adjustment per patient size (includes targ eted exams where dose is matched to clinical indication); or iterative reconstruction. DLP: 739.69 mGy.cm COMPARISON: None available. Normal thoracic alignment. No osteoblastic or osteolytic bone disease. Disc spaces are well preserved . Very minimal osteophytosis throughout the upper thoracic spine. No destructive inflammatory process . No disc protrusions or compromise of the thecal sac. Bilateral lower lobe consolidations posteriorly at the lung bases with air bronchograms. Probably ate lectasis. Developing pneumonia may appear similar. Spleen and liver appear enlarged but incompletely visualized on this exam. CT/CT thoracic spin wo con* [id number] IMPRESSION: 1. No high-grade central or foraminal stenosis. 2. No mass effect upon the cord or heterogeneity. 3. Although only partially visualized liver and spleen do appear enlarged. 4. Bilateral lower lobe areas of atelectasis. Developing pneumonia may appear similar.
--- NOTE | 2022-05-19 10:35 | CT_ITS ---
WS: [id number] CT CERVICAL SPINE HISTORY: staph blood culture TECHNIQUE: Contiguous 2.5 mm axial imaging performed through the entire cervical spine. Sagittal and coronal reformats also performed. All CT scans at [facility] use at least one of these dose o ptimization techniques: automated exposure control; mA and/or kV adjustment per patient size (include s targeted exams where dose is matched to clinical indication); or iterative reconstruction. DLP: 1258.61 mGy.cm COMPARISON: None available. Mild straightening and reversal normal cervical lordosis. No destructive bone lesions. Disc spaces ar e well preserved. No fractures are identified. Lung apices are clear. C2-C3: Mild foraminal narrowing. No high-grade stenosis. C3-C4: Normal. C4-C5: Mild osteophytic ridging. No stenosis. C5-C6: Mild osteophytic ridging. No high-grade stenosis. C6-C7: Osteophytic ridging with no high-grade stenosis. C7-T1: Normal. Soft tissues are normal. Lung apices are clear. CT/CT cervical spin wo con* [id number] IMPRESSION: 1. No destructive bone lesions. 2. No compression upon the cord is identified on this unenhanced study. 3. Mild foraminal osteophytosis.
--- NOTE | 2022-05-19 10:35 | CT_ITS ---
WS: [id number] CT HEAD NONCONTRAST HISTORY: ams TECHNIQUE: Contiguous axial imaging performed through the brain in 2.5 mm imaging. Bone and soft tiss ue windows. Sagittal and coronal reformats reviewed. All CT scans at [facility] use at least one of these dose optimization techniques: automated exposure control; mA and/or kV adjustment per pa tient size (includes targeted exams where dose is matched to clinical indication); or iterative recon struction. DLP: 1258.61 mGy.cm COMPARISON: 06/12/2017 No acute intracranial hemorrhage, midline shift or mass effect. No atrophy or prior infarcts or herniation. Ventricles: Normal size with no hydrocephalus. Paranasal sinuses: As visualized are clear. Mastoid air cells: Well pneumatized. Calvarium and scalp: Skull is intact with no soft tissue edema or swelling. CT/CT head wo con* [id number] IMPRESSION: Negative head CT.
--- NOTE | 2022-05-19 10:35 | CT_ITS ---
WS: [id number] CT CHEST WITHOUT INTRAVENOUS CONTRAST HISTORY: staph blood culture TECHNIQUE: Contiguous 5 mm axial imaging performed on the thorax. Coronal and sagittal reformats are submitted. All CT scans at [facility] use at least one of these dose optimization techniques: automated exposure control; mA and/or kV adjustment per patient size (includes targeted exams where dose is matched to clinical indication); or iterative reconstruction. CONTRAST: None DLP: 393.96 mGy.cm COMPARISON: CT 05/17/2022 Lungs and central airway: Mild increase in the extent of consolidation at the lung bases. Bilateral d ependent areas of consolidation most likely atelectasis. Very small effusions associated with the ate lectasis. Early changes of developing pneumonia should be considered. Pleura: Small amount of pleural thickening and fluid along the fissures. Heart and pericardium: Normal size heart with no pericardial effusion. Mediastinum and trixie: Limited evaluation for adenopathy without IV contrast. Vessels: Normal size aortic and pulmonary artery. No coronary artery calcifications. Chest wall and lower neck: No soft tissue masses. Upper abdomen: Liver and spleen are incompletely visualized. The liver and spleen due to. To be enlar ged at least moderately. There is mild edema within the mesentery. This also appears slightly enlarge d but only a small portion of the kidneys are included. Osseous structures: No destructive process. CT/CT chest wo con [id number] IMPRESSION: 1. Increasing, bilateral bilateral similar consolidations at the lung bases an d small effusions. Most consistent with dependent atelectasis. 2. Small pleural effusions are new since 05/17/2022. 3. Although incompletely visualized on this examination the liver and spleen a ppear enlarged. 4. No cardiomegaly.
--- NOTE | 2022-05-19 10:46 | PC.NURSE ---
Upon morning assessment, patient was lethargic, at times, difficult to rouse. SHe was also reporting pain as 10/10 unbearable. Nurse administrted tylenol instead of morphine due to patient's mental status. NUrse educated her and a friend who is present on pain relief options and reasoning for withholding opiods at this time.
--- NOTE | 2022-05-19 10:49 | PC.NURSE ---
Later in shift, patient remains lethargic, but asking for pain meds. Still difficult to rouse and has trouble staying awake at times. Nurse did not administer morphine due to altered mental status and lethargy. Patient's friend who is at bedside is upset that we aren't giving pain medication to the patient. Nurse again explained reason for not giving pain medication at this time but we will continue to monitor and given when appropriate.
[2022-05-19 10:50] LABS: Erythrocyte Sedimentation Rate 55 mm/hr (0-15)
--- NOTE | 2022-05-19 11:10 | PC.NURSE ---
Addendum entered by Dayo Alexander RN 05/20/22 13:38: 05/20/2022 1338: NUrse opened up curtains and shades in patient's room for better observation, and hoping that increased stimulation will improve mental status, allowing pain medication to be administered. Nurse explained reasoning to patient's visitor. Later the visitor closed the shades and curtains. Nurse once again opened shades and curtains and explained reasoning of closer observation and increased stimulation. Patient's friend Gregory complained that she had no privacy and that peiople may be able to see up her hospital gown since the patient had taken off sheets. Nurse offered to cover lower body with sheet, but he said she is too hot. Nurse offered the sheet for increased privacy and a fan, but patient said that fans bother her allergies. Nurse offered allergy medicine and a fan, but patient said that allergy medicine causes her to get a stuffy nose and doesn't want it. NUrse covered patient's waist with a thin sheet and offered a cool compress for her head. They declined the cool compress as they said they already had some in the room, but they were being unused. Original Note: NUrse opened up curtains and shades in patient's room for better observation, and hoping that increased stimulation will improve mental status, allwing pain medication to be administered. Nurse explained reasoning to patient's visitor. Later the visitor closed the shades and curtains. Nurse once again opened shades and curtains and explained reasoning of closer observation and increased stimulation. Patient's friend complained that she had no privacy and that peiople may be able to see up her hospital gown since the patient had taken off sheets. Nurse offered to cover lower body with sheet, but he said she is too hot. Nurse offered the sheet for increased privacy and a fan, but patient said that fans bother her allergies. Nurse offered allergy medicine and a fan, but patient said that allergy medicine causes her to get a stuffy nose and doesn't want it. NUrse covered patient's waist with a thin sheet and offered a cool compress for her head. They declined the cool compress as they said they already had some in the room, but they were being unused.
--- NOTE | 2022-05-19 11:25 | PC.NURSE ---
Dr hill ordered lower dose of pain meds. MOrphine administered.
[2022-05-19 11:44] LABS: HIV 1 & 2 Antibody Non-Reactive (Non-Reactiv); HIV 1 & 2 Antigen Non-Reactive (Non-Reactiv)
[2022-05-19] MEDS: metoclopramide 5 mg/mL SDV 2 mL IVP (11:48)
--- NOTE | 2022-05-19 12:01 | P.PN_ITS ---
Subjective Subjective: Patient was seen this morning she remains alert to person, to place, not to time is quite drowsy, nursing staff tells me that she has been using morphine [id number], she continues to complain of back pain, no fevers overnight, her nausea still persist, but she is able to keep down liquids, I asked her about her urine toxicology being positive for methamphetamines that she got very upset, she tells to the people from methamphetamine use that she is never used any drugs, I advised her that I wanted to make sure that she did not have any other source of infection to explain her sluggish clinical progress. She still with acute renal failure, urine output is improving, Vitals/I&O/Wt Last Vital Signs Temp 99.4 F 05/19/22 09:00 Pulse 105 H 05/19/22 09:30 Resp 20 H 05/19/22 10:35 BP 127/81 05/19/22 09:30 Pulse Ox 98 05/19/22 10:35 O2 Del Method 05/19/22 09:00 05/18/22 05/19/22 05/19/22 22:59 06:59 14:59 Intake Total 2164.583 / 3738.583 885.417 / 4624.000 50 / 50 Output Total 150 / 270 400 / 670 150 / 150 Balance 2014.583 / 3468.583 485.417 / 3954.000 -100 / -100 Weight last 48 hrs Weight 78.471 kg Physical Exam Const: COMMON NORMALS: no acute distress ORIENTATION/CONSCIOUSNESS: Yes awake, Yes oriented to person and Yes oriented to place Resp: COMMON NORMALS: normal respiratory effort, No retractions, No use of accessory muscles and clear to auscultation bilaterally AUSCULTATION: clear to auscultation bilaterally Cardio: COMMON NORMALS: regular rate, regular rhythm, S1 normal heart sound present and S2 normal heart sound present RATE: regular rate RHYTHM: regular rhythm HEART SOUNDS: S1 normal heart sound present and S2 normal heart sound present GI: COMMON NORMALS: Normal to inspection, nondistended, normoactive bowel sounds present, Soft to palpation and non-tender PALPATION: Yes Soft to palpation Extremity: COMMON NORMALS: no pedal edema Neuro: SENSORIUM/ORIENTATION: Yes oriented to person and Yes oriented to place Psych: COMMON NORMALS: mental status grossly normal Urinary Catheter Management: Contreras: Cath Placed During This Visit: yes Reason for Continuing Indwelling Catheter: Accurate Measurement of Urinary Output in Critically Ill Patients Urinary Catheter Date of Insertion: 05/18/22 Urinary Catheter Time of Insertion: 12:15 Data 05/19/22 05:35 05/19/22 05:35 Micro: Microbiology 05/17/22 16:00 Blood Culture - Preliminary Blood Staphylococcus sp coag neg 05/17/22 12:06 Urine Culture - Final Urine,Clean Catch Escherichia coli 05/17/22 16:07 Blood Culture - Preliminary Blood NEGATIVE TO DATE A&P Assessment and plan (1) Pyelonephritis: (2) Acute kidney injury: Plan Right pyelonephritis, UTI, SAMANTHA -CT scan no evidence of obstructive uropathy, no hydronephrosis -Admit to ICU for close monitoring -Monitor urine output closely, 800 cc -Monitor creatinine monitor serum sodium -Monitor CRP, Pro-Wero -Expand antibiotic coverage to meropenem, Zyvox added last night as blood positive was positive for staph species -Urine culture positive for E. coli pansensitive -mrsa nares pcr -IV hydration 60 cc an hour -Repeat renal ultrasound no obstructive uropathy, no hydronephrosis -Creatinine reviewed 5.2 has good urine output -Hyponatremia -Monitor for fevers -Follow urine cultures, blood cultures -Given her sluggish clinical response, her staph positive blood culture, we will do a paul CT scan, cardiac echo repeat blood cultures Attestations Medical Necessity Statement*: Patient requires hospitalization for right pyelonephritis, UTI, SAMANTHA Coding Level of Care Code Acute Paralegal Instructor for [facility] Diagnoses Pyelonephritis N12 Acute kidney injury N17.9
[2022-05-19 12:38] LABS: Bacillus cereus group Not Detected (NOT DETECT); Bacillus subtillis group Not Detected (NOT DETECT); Corynebacterium Not Detected (NOT DETECT); Cutibacterium acnes (P.acnes) Not Detected (NOT DETECT); Enterococcus Not Detected (NOT DETECT); Enterococcus faecalis Not Detected (NOT DETECT); Enterococcus faecium Not Detected (NOT DETECT); Lactobacillus species Not Detected (NOT DETECT); Listeria Not Detected (NOT DETECT); Listeria monocytogenes Not Detected (NOT DETECT); Micrococcus Not Detected (NOT DETECT); Pan Candida Not Detected (NOT DETECT); Pan Gram-Negative Not Detected (NOT DETECT); Staphylococcus epidermidis Detected (NOT DETECT); Staphylococcus lugdunensis Not Detected (NOT DETECT); Staphylococcus species Detected (NOT DETECT); Streptococcus agalactiae Not Detected (NOT DETECT); Streptococcus anginosus group Not Detected (NOT DETECT); Streptococcus pneumoniae Not Detected (NOT DETECT); Streptococcus pyogenes Not Detected (NOT DETECT); Streptococcus species Not Detected (NOT DETECT); mecA Detected (NOT DETECT); mecC Not Detected (NOT DETECT)
[2022-05-19] MEDS: pantoprazole 40 mg SDV IVP (15:15)
[2022-05-19] MEDS: enoxaparin 40 mg/0.4 mL Syringe SUBCUT (15:24)
[2022-05-19 15:55] LABS: Hepatitis A Antibody IgM Non-Reactive (Nonreactive); Hepatitis B Core IgM Non-Reactive (Nonreactive); Hepatitis B Surface Antigen Non-Reactive (Nonreactive); Hepatitis C Virus Antibody Non-Reactive (Nonreactive)
--- NOTE | 2022-05-19 16:23 | PC.NURSE ---
Nurse has observed that when visitor Gregory is present, patient is very restless and frequently complains of pain, and Gregory is very insistent on her receiving pain medications even when it is contraindicated. When Gregory leaves the room, the patient will relax and go to sleep. Gregory has been out of the room for about 3 hours now and patient has rested comfortably with the curtains open and no complaints of pain or nausea. Last pain medication was 6 hours ago.
[2022-05-19] MEDS: lanolin oint 7 gm 1 APPLIC TOPICAL (23:40)
--- NOTE | 2022-05-19 23:51 | PC.NURSE ---
Cecil is at bedside, pt and were educated on the disease process. At this time pt has not requested more pain medication.
[2022-05-20] VITALS (43 sets, daily range): BP systolic 93–128; BP diastolic 52–99; PULSE 73–100; RESP 12–24; TEMP 36.2–36.9; O2SAT 95–100
[2022-05-20 03:33] LABS: Basophils % 0.4 %; Eosinophils # 0.2 10^3/uL (0.0-0.8); Eosinophils % 2.2 %; Hematocrit 32.3 % (37.0-47.0); Hemoglobin 11.1 g/dL (11.5-15.3); Lymphocytes # 0.7 10^3/uL (0.8-4.8); Lymphocytes % 10.1 %; Mean Corpuscular HGB Conc 34.4 g/dL (30.0-36.0); Mean Corpuscular Hemoglobin 30.7 pg (28.0-34.0); Mean Corpuscular Volume 89.5 fl (81-99); Mean Platelet Volume 10.3 fL (7.4-10.4); Monocytes # 0.2 10^3/uL (0.2-0.9); Monocytes % 3.1 %; Neutrophils # 5.32 10^3/uL (1.8-7.7); Neutrophils % 79.3 %; Nucleated Red Blood Cells % 0 %; Platelet Count 194 10^3/cmm (130-400); Red Blood Count 3.61 10^6/uL (4.1-5.3); Red Cell Distribution Width 12.7 % (12.1-15.1); White Blood Count 6.7 10^3/uL (4.0-10.0)
[2022-05-20 04:00] LABS: NT Pro B Type Natriuretic Pept 10088 pg/mL (0-125)
[2022-05-20 04:13] LABS: Alanine Aminotransferase 17 U/L (0-33); Alkaline Phosphatase 202 U/L (35-105); Anion Gap 17.3 (5-19); Aspartate Amino Transferase 31 U/L (0-32); Blood Urea Nitrogen 55 mg/dL (6-20); C Reactive Protein 193.6 mg/L (0.0-4.9); Calcium 8.2 mg/dL (8.5-10.5); Carbon Dioxide 17 mmol/L (22-29); Chloride 96 mmol/L (98-107); Glomerular Filtration Rate 8.1 mL/min (90-130); Glucose 89 mg/dL (65-115); Magnesium 2.6 mg/dL (1.7-2.3); Osmolality Calculated 279 mOsm/kg (285-295); Phosphorus 3.9 mg/dL (2.5-4.5); Potassium 3.3 mmol/L (3.5-5.1); Sodium 127 mmol/L (136-145); Total Bilirubin 1.7 mg/dL (0.15-1.2)
[2022-05-20] MEDS: linezolid premix 600 MG/300 ML PREMIX 300 MG IV ×2 (05:07→17:36)
--- NOTE | 2022-05-20 06:01 | P.PN_ITS ---
Subjective Subjective: states back pain is better, + skin itching, + nausea. I explained these symptoms may be related to narcotics Vitals/I&O/Wt Last Vital Signs Temp 97.9 F 05/19/22 21:00 Pulse 87 05/20/22 04:30 Resp 14 05/20/22 04:30 BP 105/77 05/20/22 04:30 Pulse Ox 95 05/20/22 04:30 O2 Del Method 05/20/22 04:30 05/19/22 05/19/22 05/20/22 14:59 22:59 06:59 Intake Total 50 / 50 1250 / 1300 166 / 1466 Output Total 375 / 375 250 / 625 Balance -325 / -325 1000 / 675 166 / 841 Physical Exam Const: COMMON NORMALS: no acute distress and alert Extremity: GENERAL: Yes edema Neuro: SENSORIUM/ORIENTATION: Yes alert Urinary Catheter Management: Contreras: Cath Placed During This Visit: yes Reason for Continuing Indwelling Catheter: Accurate Measurement of Urinary Output in Critically Ill Patients Urinary Catheter Date of Insertion: 05/18/22 Urinary Catheter Time of Insertion: 12:15 Data 05/20/22 02:58 05/20/22 02:58 Other Labs: Ca 8.2, phos 3.9, Mg 2.6, bili 1.7, albumin 2 Micro: Microbiology 05/19/22 13:15 Blood Culture - Preliminary Blood SPECIMEN COLLECTED 05/19/22 13:22 Blood Culture - Preliminary Blood SPECIMEN COLLECTED 05/17/22 16:00 Blood Culture - Preliminary Blood Staphylococcus epidermidis 05/17/22 12:06 Urine Culture - Final Urine,Clean Catch Escherichia coli A&P Assessment and plan (1) Acute kidney injury: seen via telemedicine with assistance of RN at bedside Plan 1. Acute kidney injury: urine output much improved, 1400 ml/24h, currently 50 ml/hr. No indication for dialysis at this time 2. Pyelonephritis: UC e.coli. BC 06/30 staph epi probably contaminant. Tmax 99. Antibiotics per hospitalist 3. Volume overload, originally volume depleted, now 8L positive. Will give low dose lasix. 4. Hyponatremia: hypervolemic, serum sodium stable 5. Metabolic acidosis: add oral sodium bicarbonate 6. Hypokalemia. 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
[2022-05-20] MEDS: meropenem 1,000 MG in sodium chloride 0.9% (plus) 50 ML 100 MG IV (06:05)
[2022-05-20] MEDS: acetaminophen 325 mg Tablet 650 MG PO (06:16)
[2022-05-20] MEDS: morphine 4 mg/mL SDV 1 mL 1 MG IVP (06:19)
[2022-05-20] MEDS: ondansetron 2 mg/ML SDV 2 mL 4 MG IVP (07:39)
--- NOTE | 2022-05-20 11:20 | P.PN_ITS ---
Subjective Subjective: Patient was seen this morning, patient's is at bedside -I discussed the case in detail -She presented initially for right pyelonephritis, UTI, with acute renal failure -She has grown E. coli in her urine, -Her repeat renal ultrasound and initial CT does not show any significant obstructive uropathy, no renal abscess -However her response has been a bit lackluster -She is still fatigued, tired, -Her mentation is better today, but yesterday she was a bit encephalopathic she is alert oriented x3, follows all commands, snuggled with her in bed -But her ESR is over 55, her CRP is 193, and her Pro-Wero is 8.9, no fevers for the last 2 days -One of her blood cultures is positive for staph epidermis -This makes me curious that if there is any other indolent infection -[place] CT scan has not revealed any other source of infection at -Her transthoracic echocardiogram does not show any significant valvular vegetations -But given her lackluster response to persistently elevated inflammatory markers, I discussed with her performing a transesophageal echocardiogram to rule out endocarditis -She again denies any drug use -Will consult cardiology for a transesophageal echocardiogram tomorrow -Unfortunately her kidney function creatinine remains 6, her urine output has improved, but now she is becoming hyponatremic, hypokalemic, from the renal failure -She is received appropriate fluid therapy, there is concerns of her becoming fluid overloaded -I discussed with her doing dialysis -Discussed risks and benefits she voiced understanding, all questions answered agreed to proceed with temporary dialysis catheter placement and dialysis if required -There is another male that comes and talks to me about the patient his name is Darnell, she identified him as a friend, she is okay with me talking to him about the case Vitals/I&O/Wt Last Vital Signs Temp 97.1 F L 05/20/22 10:01 Pulse 78 05/20/22 10:01 Resp 16 05/20/22 10:01 BP 93/68 05/20/22 10:01 Pulse Ox 98 05/20/22 10:01 O2 Del Method 05/20/22 10:01 05/19/22 05/20/22 05/20/22 22:59 06:59 14:59 Intake Total 1250 / 1300 516 / 1816 Output Total 250 / 625 700 / 1325 225 / 225 Balance 1000 / 675 -184 / 491 -225 / -225 Physical Exam Const: COMMON NORMALS: no acute distress and patient oriented x3 Resp: COMMON NORMALS: normal respiratory effort, No retractions, No use of accessory muscles and clear to auscultation bilaterally AUSCULTATION: clear to auscultation bilaterally Cardio: COMMON NORMALS: regular rate, regular rhythm, S1 normal heart sound present and S2 normal heart sound present RATE: regular rate RHYTHM: regular rhythm HEART SOUNDS: S1 normal heart sound present, S2 normal heart sound present and Murmur heart sound present systolic GI: COMMON NORMALS: Normal to inspection, nondistended, normoactive bowel sounds present and non-tender Extremity: COMMON NORMALS: no pedal edema Neuro: COMMON NORMALS: patient oriented x3 Psych: COMMON NORMALS: mental status grossly normal Urinary Catheter Management: Contreras: Cath Placed During This Visit: yes Reason for Continuing Indwelling Catheter: Accurate Measurement of Urinary Output in Critically Ill Patients Urinary Catheter Date of Insertion: 05/18/22 Urinary Catheter Time of Insertion: 12:15 Data 05/20/22 02:58 05/20/22 02:58 Micro: Microbiology 05/19/22 13:15 Blood Culture - Preliminary Blood SPECIMEN COLLECTED 05/19/22 13:22 Blood Culture - Preliminary Blood SPECIMEN COLLECTED 05/17/22 16:00 Blood Culture - Preliminary Blood Staphylococcus epidermidis 05/17/22 12:06 Urine Culture - Final Urine,Clean Catch Escherichia coli A&P Assessment and plan (1) Pyelonephritis: (2) Acute kidney injury: (3) E-coli UTI: (4) Staphylococcus epidermidis bacteremia: Plan Right pyelonephritis, UTI, SAMANTHA -CT scan no evidence of obstructive uropathy, no hydronephrosis -renal us -Right kidney: Normal. No stones. No hydronephrosis.? 13.7 cm x 5.3 cm x 7.1 cm Left kidney: Normal. No stones. No hydronephrosis.? 12.9 cm x 5.3 cm x 5.9 cm Urinary bladder: Unremarkable.? Bilateral ureteral jets are visible -[place] CT scan did not reveal any significant radiologic evidence acute source of infection in the chest or spine -Transthoracic echocardiogram CONCLUSIONS ?LV systolic function is normal with EF of 55-60% ?Trace tricuspid regurgitation. ?No significant valvular disease noted ?No comparison studies are available -Admit to ICU for close monitoring -Monitor urine output closely,1400 cc, creatinine 6, serum sodium 137 -Monitor creatinine monitor serum sodium -Monitor CRP, Pro-Wero, still quite elevated? -Continue broad-spectrum antibiotic therapy coverage to meropenem, Zyvox -Urine culture positive for E. 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
--- NOTE | 2022-05-20 11:31 | PC.CHAP ---
Pastoral Care Encounter/Spiritual Assessment Type of Contact [] Declined blasting machine operator visit [] Patient/Family/Request visit [] Outpatient visit [] Follow-up visit [] Physician referral [] Code/Alert [x] Routine visit [] Staff referral [] Actively dying [] Patient sleeping [] Family support [] [] Out of room [] Palliative care [] [x] Receiving care in room [] Pre-surgical visit [] Trauma [] Long length of stay [x] ICU visit [] Other: Relational/Emotional Strength [] Patient feels connected with others/family/visitors/staff [] Distress [] Loneliness/isolation [] Abandonment Spirituality of Patient [] Person of Alyse [] Attends Moravian of their Alyse [] Believes in Prayer [] Reads Bible or Cheondoism materials [] There are Spiritual issues to be addressed [employer]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 Interventions [x] Prayer [] Active listening [] Non-anxious presence [] Spiritual/emotional support [] Crisis/trauma care [] Spiritual counseling [] Bereavement support [] Provided bereavement packet [] Provided Bible/devotional materials [] Provided toy/stuffed animal, coloring book to patient or family member [] Provided Communion [] Anointing/[place] [] Salvation [x] Completed spiritual assessment [] Other: Impact on Illness or Injury [] Angry [] Fearful [] Anxious [] Often cries [] Exhaustion [] Unable to work [] Unable to attend orthodox [] Unable to walk/stand [] Unable to read [] Unable to drive [] Unable to eat/drink [] Unable to sleep [] Unable to be with family [] Patient intubated [] Other: Summary Time spent with patient
[2022-05-20] MEDS: TRAMadol 50 mg Tablet PO ×2 (11:44→19:12)
[2022-05-20] MEDS: FUROsemide 10 mg/mL SDV 2mL 20 MG IVP ×2 (12:40→23:50)
[2022-05-20] MEDS: metoclopramide 5 mg/mL SDV 2 mL IVP (13:23)
--- NOTE | 2022-05-20 13:32 | PC.NURSE ---
Patient's Cecil was at the bedside with the patient. The visitor from yesterday, Yas, came to the ICU to visit the patient. Yas asked if there was another visitor right now and he was told her is at bedside. Yas told nurse staff that he is her boyfriend and he promptly left the unit. In the past, the patient has referred to yas as her boyfriend. However, when her is present she refers the relationship as being just friends. Nurse alerted Security and house nurse to situation in case a confrontation occurs if they both show up to the hospital at the same time to visit.
[2022-05-20 13:47] LABS: Salicylate < 0.3 mg/dL (3-10)
[2022-05-20] MEDS: pantoprazole 40 mg SDV IVP (14:47)
[2022-05-20 16:40] LABS: Anion Gap 18.3 (5-19); Blood Urea Nitrogen 57 mg/dL (6-20); Calcium 8.1 mg/dL (8.5-10.5); Carbon Dioxide 18 mmol/L (22-29); Chloride 94 mmol/L (98-107); Glomerular Filtration Rate 8.6 mL/min (90-130); Glucose 105 mg/dL (65-115); Osmolality Calculated 280 mOsm/kg (285-295); Potassium 3.3 mmol/L (3.5-5.1); Sodium 127 mmol/L (136-145)
--- NOTE | 2022-05-20 17:33 | PM.CONSULT ---
Providers/Reason For Consult Consulting Physician/Specialty*: Daniele Vizcarra MD/Cardiology Reason for Consult*: Evaluation for KARIS/ Possible endocarditis Requesting Physician: Dr Rebollar Attending Physician: Rick Rebollar MD History of Present Illness History of Present Illness Ryanne Rico is a 31 year old female who has presented with pyelonephritis and sepsis did not show adequate response to initial antibiotic therapy. Concern for endocarditis. Transthoracic echocardiogram did not reveal vegetations. 1 out of 3 bottles for culture are positive for staph epidermidis. Review of Systems Const: Reports: fever(s), chills and body aches Card: Denies: chest pain Resp: Denies: dyspnea GI: Denies: abdominal pain Medications/Allergies Home Medications Medication Instructions Recorded Confirmed Last Taken Type No Known Home Medications 05/17/22 05/17/22 Unknown History Allergies Allergy/AdvReac Type Severity Reaction Status Date / Time No Known Allergies Allergy Verified 05/17/22 11:01 Current Medications Generic Name Dose Route Start Last Admin Trade Name Freq PRN Reason Stop Dose Admin Acetaminophen 650 mg 05/17/22 14:06 05/20/22 06:16 Acetaminophen 325 Mg Tablet PO 650 mg Q6H PRN Administration Mild/Mod Pain Or Temp >/= 101 Furosemide 20 mg 05/20/22 12:00 05/20/22 12:40 Furosemide 10 Mg/Ml Sdv 2ml IVP 20 mg Q12H ANUSHA Administration Sodium Chloride 1,000 mls @ 60 mls/hr 05/17/22 14:37 05/20/22 12:51 Sodium Chloride 0.9% IV 0 mls/hr .[id number] ANUSHA Infusion Linezolid 600 mg in 300 mls @ 300 mls/hr 05/18/22 18:00 05/20/22 06:28 Zyvox Premix IV Infused Q12H ANUSHA Infusion Protocol Potassium Chloride 10 meq/ 1,005 mls @ 60 mls/hr 05/20/22 12:00 05/20/22 12:51 Sodium Chloride IV 60 mls/hr .[id number] ANUSHA Administration Lanolin 1 applic 05/19/22 21:35 05/19/22 23:40 Lanolin Oint 7 Gm TOPICAL 1 applic PRN PRN Administration DRYNESS Metoclopramide HCl 5 mg 05/19/22 11:31 05/20/22 13:23 Metoclopramide 5 Mg/Ml Sdv 2 Ml IVP 5 mg Q6H PRN Administration NAUSEA AND VOMITING Ondansetron HCl 4 mg 05/17/22 14:22 05/20/22 07:39 Ondansetron 2 Mg/Ml Sdv 2 Ml IVP 4 mg Q8H PRN Administration vomiting, or N/V if npo Pantoprazole Sodium 40 mg 05/17/22 14:30 05/20/22 14:47 Pantoprazole 40 Mg Sdv IVP 40 mg Q24H ANUSHA Administration Tramadol HCl 50 mg 05/20/22 11:39 05/20/22 11:44 Tramadol 50 Mg Tablet PO 50 mg Q4H PRN Administration MODERATE PAIN PFSH Acute PFSH: Surgical History No pertinent past surgical history Family History Other Hypertension Social History Smoking and tobacco status: never smoked Alcohol intake: never Substance/Drug Use: never Vitals/I&O/Wt Last Vital Signs Temp 97.3 F L 05/20/22 12:00 Pulse 84 05/20/22 14:00 Resp 16 05/20/22 13:00 BP 107/81 05/20/22 13:00 Pulse Ox 98 05/20/22 13:00 O2 Del Method 05/20/22 12:00 05/20/22 05/20/22 05/20/22 06:59 14:59 22:59 Intake Total 516 / 1816 818 / 818 Output Total 700 / 1325 925 / 925 Balance -184 / 491 -107 / -107 Physical Exam Narrative: GENERAL: Patient is alert, awake and oriented x3. [] NECK: No jugular vein distension. [] HEENT: No cyanosis. No icterus. No pallor. [] HEART: Regular S1 and S2. No murmur, rub or gallop. [] LUNGS: Decreased breath sounds ABDOMEN: Soft, nontender and nondistended. Positive bowel sounds. No guarding, rebound or tenderness. [] CENTRAL NERVOUS SYSTEM: Grossly nonfocal. [] EXTREMITIES: Lower extremities with 1+ edema bilaterally. Pulses palpable in the lower extremities, both dorsalis pedis and posterior tibial. [] Urinary Catheter Management: Contreras: Cath Placed During This Visit: yes Reason for Continuing Indwelling Catheter: Accurate Measurement of Urinary Output in Critically Ill Patients Urinary Catheter Date of Insertion: 05/18/22 Urinary Catheter Time of Insertion: 12:15 Data 05/20/22 02:58 05/20/22 13:07 Micro: Microbiology 05/19/22 13:15 Blood Culture - Preliminary Blood NEGATIVE TO DATE 05/19/22 13:22 Blood Culture - Preliminary Blood NEGATIVE TO DATE 05/17/22 16:00 Blood Culture - Preliminary Blood Staphylococcus epidermidis A&P Assessment and plan (1) Staphylococcus epidermidis bacteremia: (2) E-coli UTI: (3) Pyelonephritis: (4) Acute kidney injury: Plan Given lack of adequate response to antibiotic therapy, will proceed with transesophageal echocardiogram tomorrow to definitively rule out endocarditis. N.p.o. past midnight. Risk and benefit of the procedure have been discussed with the patient who understands them and wants to proceed with the procedure. Thank you for involving us with care of this patient. Please call with questions Consult Attestations Medical Necessity Statement: Care expected to cross 2 midnights. Coding Level of Care Code Acute Ed Educational Aide for Hannah Prado Diagnoses Staphylococcus epidermidis bacteremia R78.81; B95.7 E-coli UTI N39.0; B96.20 Pyelonephritis N12 Acute kidney injury N17.9
[2022-05-20] MEDS: enoxaparin 30 mg/0.3 mL Syringe SUBCUT (17:36)
[2022-05-20] MEDS: sodium bicarbonate 650 mg Tablet PO ×2 (17:36→21:07)
--- NOTE | 2022-05-20 18:09 | PC.NURSE ---
Shift SUmmary: At beggining of shift, patient was still very lethargic and complaining of pain, near end of shift, patient is awake, alert, energetic, wants to ambulate in room after dinner. KARIS planned for tommorow. Possible dialysis catheter placement and dialysis dependant on morning labs and nephrology consult. Cecil has been at bedside all and day has been help with encouraging her with a tolerable amount of oral fluid intake, and getting up to a chair for meals, but also letting her rest when needed. Total urine output has been 1575 for the 12 hour shift.
[2022-05-20] MEDS: meropenem 500 MG in sodium chloride 0.9% (plus) 50 ML 100 MG IV (19:13)
[2022-05-21] VITALS (19 sets, daily range): BP systolic 101–127; BP diastolic 65–85; PULSE 72–93; RESP 13–21; TEMP 36.6; O2SAT 93–100
[2022-05-21 03:48] LABS: Basophils # 0.1 10^3/uL (0.0-0.1); Basophils % 0.5 %; Eosinophils # 0.5 10^3/uL (0.0-0.8); Hematocrit 32.8 % (37.0-47.0); Hemoglobin 11.3 g/dL (11.5-15.3); Lymphocytes # 1.3 10^3/uL (0.8-4.8); Lymphocytes % 13.2 %; Mean Corpuscular HGB Conc 34.5 g/dL (30.0-36.0); Mean Corpuscular Hemoglobin 30.8 pg (28.0-34.0); Mean Corpuscular Volume 89.4 fl (81-99); Mean Platelet Volume 10.1 fL (7.4-10.4); Monocytes # 0.7 10^3/uL (0.2-0.9); Monocytes % 7.4 %; Neutrophils # 6.69 10^3/uL (1.8-7.7); Neutrophils % 68.1 %; Nucleated Red Blood Cells % 0 %; Platelet Count 239 10^3/cmm (130-400); Red Blood Count 3.67 10^6/uL (4.1-5.3); Red Cell Distribution Width 12.9 % (12.1-15.1); White Blood Count 9.8 10^3/uL (4.0-10.0)
[2022-05-21 04:20] LABS: NT Pro B Type Natriuretic Pept 5069 pg/mL (0-125); Procalcitonin 3.91 ng/mL (0-0.5)
[2022-05-21 04:32] LABS: Alanine Aminotransferase 25 U/L (0-33); Alkaline Phosphatase 256 U/L (35-105); Anion Gap 16.2 (5-19); Aspartate Amino Transferase 77 U/L (0-32); Blood Urea Nitrogen 56 mg/dL (6-20); C Reactive Protein 104.2 mg/L (0.0-4.9); Calcium 8.1 mg/dL (8.5-10.5); Carbon Dioxide 21 mmol/L (22-29); Chloride 95 mmol/L (98-107); Creatine Phosphokinase 7 U/L (26-192); Globulin 3.2 g/dL (1.3-4.6); Glomerular Filtration Rate 9.3 mL/min (90-130); Glucose 92 mg/dL (65-115); Magnesium 2.4 mg/dL (1.7-2.3); Osmolality Calculated 283 mOsm/kg (285-295); Phosphorus 3.7 mg/dL (2.5-4.5); Potassium 3.2 mmol/L (3.5-5.1); Sodium 129 mmol/L (136-145); Total Bilirubin 0.9 mg/dL (0.15-1.2); Total Protein 5.2 g/dL (6.6-8.7)
[2022-05-21] MEDS: linezolid premix 600 MG/300 ML PREMIX 300 MG IV (05:27)
[2022-05-21] MEDS: meropenem 500 MG in sodium chloride 0.9% (plus) 50 ML 100 MG IV (06:19)
--- NOTE | 2022-05-21 06:41 | P.PN_ITS ---
Subjective Subjective: feeling better. Ambulated. feels weak. would like michaels removed Vitals/I&O/Wt Last Vital Signs Temp 98.3 F 05/20/22 21:00 Pulse 78 05/21/22 06:00 Resp 17 05/21/22 05:00 BP 102/66 05/21/22 05:00 Pulse Ox 96 05/21/22 05:00 O2 Del Method 05/21/22 05:00 05/20/22 05/20/22 05/21/22 14:59 22:59 06:59 Intake Total 818 / 818 750 / 1568 1205 / 2773 Output Total 925 / 925 650 / 1575 1000 / 2575 Balance -107 / -107 100 / -7 205 / 198 Physical Exam Const: COMMON NORMALS: no acute distress and alert Extremity: GENERAL: Yes edema Neuro: SENSORIUM/ORIENTATION: Yes alert Urinary Catheter Management: Michaels: Cath Placed During This Visit: yes Reason for Continuing Indwelling Catheter: Accurate Measurement of Urinary Output in Critically Ill Patients Urinary Catheter Date of Insertion: 05/18/22 Urinary Catheter Time of Insertion: 12:15 Data 05/21/22 02:57 05/21/22 02:57 Micro: Microbiology 05/19/22 13:15 Blood Culture - Preliminary Blood NEGATIVE TO DATE 05/19/22 13:22 Blood Culture - Preliminary Blood NEGATIVE TO DATE A&P Assessment and plan (1) Acute kidney injury: seen via telemedicine with assistance of RN at bedside Plan 1. Acute kidney injury: urine output much improved. Cr lower. No indication for dialysis at this time. Serologic workup for GN, vasculitis sent 2. Pyelonephritis: UC e.coli. 07/02 staph epi probably contaminant. Antibiotics per hospitalist. KARIS today 3. Volume overload, diuresing with low dose lasix. discontinue IVF after KARIS 4. Hyponatremia: hypervolemic, improved 5. Metabolic acidosis: resolved 6. Hypokalemia. replace D/c michaels after KARIS Attestations Medical Necessity Statement*: see above Time Spent in Patient Care: 16 - 35 minutes Coding Level of Care Code Acute Infection Prevention Specialist for Hannah Prado Diagnoses Acute kidney injury N17.9
[2022-05-21 07:12] LABS: Complement C3 72 mg/dL (90-180)
--- NOTE | 2022-05-21 08:04 | PC.NURSE ---
Patient refused liquid potassium, Dr. Rebollar gave v.o. for Potassium 20 mEq tablet
[2022-05-21] MEDS: potassium chloride ER 20 mEq Tablet PO (08:13)
--- NOTE | 2022-05-21 10:27 | PC.CHAP ---
Pastoral Care Encounter/Spiritual Assessment Type of Contact [] Declined technology education teacher visit [] Patient/Family/Request visit [] Outpatient visit [] Follow-up visit [] Physician referral [] Code/Alert [x] Routine visit [] Staff referral [] Actively dying [] Patient sleeping [x] Family support [] [] Out of room [] Palliative care [] [] Receiving care in room [] Pre-surgical visit [] Trauma [] Long length of stay [x] ICU visit [x] Other: present... technology education teacher prays outside room Relational/Emotional Strength [] Patient feels connected with others/family/visitors/staff [] Distress [] Loneliness/isolation [] Abandonment Spirituality of Patient [] Person of Alyse [] Attends Evangelical of their Alyse [] Believes in Prayer [] Reads Bible or Gnosticism materials [] There are Spiritual issues to be addressed Video News Editor Interventions [x] Prayer [] Active listening [] Non-anxious presence [] Spiritual/emotional support [] Crisis/trauma care [] Spiritual counseling [] Bereavement support [] Provided bereavement packet [] Provided Bible/devotional materials [] Provided toy/stuffed animal, coloring book to patient or family member [] Provided Communion [] Anointing/[place] [] Salvation [x] Completed spiritual assessment [] Other: Impact on Illness or Injury [] Angry [] Fearful [] Anxious [] Often cries [] Exhaustion [] Unable to work [] Unable to attend cheondoism [] Unable to walk/stand [] Unable to read [] Unable to drive [] Unable to eat/drink [] Unable to sleep [] Unable to be with family [] Patient intubated [] Other: Summary Time spent with patient
--- NOTE | 2022-05-21 11:02 | USCV_ITS ---
Ryanne Rico Age: 31 Gender: F : 1990 Exam Date: 05/21/2022 14:29 Ordering Phys: Rick Rebollar MD Technologist: Ajay Griffin Exam Location: [facility] [place] Indication: ? veg BP: / HR: Rhythm: Sinus Technical Quality: MEASUREMENTS (Male / Female) Normal Values Medications Complications None Proc. Components After anesthesia team administered sedation, we proceeded with intubation with KARIS probe FINDINGS Left Ventricle LV systolic function is normal. No regional wall abnormalities are seen Right Ventricle LV is normal in size and function Right Atrium Grossly normal Left Atrium Normal in size LA Appendage No left atrial appendage thrombus seen IA Septum Structurally normal Mitral Valve Structurally normal mitral valve. Trace mitral regurgitation. No vegetation seen Aortic Valve Structurally normal aortic valve. No vegetation seen. Tricuspid Valve Structurally normal tricuspid valve. No vegetation seen Pulmonic Valve Structurally normal pulmonic valve. No vegetation seen Pericardium Normal Aorta Normal in size CONCLUSIONS LV systolic function is normal No significant valvular abnormalities seen. No vegetation noted Daniele Vizcarra MD (Electronically Signed) Final Date: 22 May 2022 12:22 S
--- NOTE | 2022-05-21 11:14 | ANES.PREANE2 ---
Pre-Anesthetic Assessment Height/Weight: Height 1.63 m Weight 78.471 kg Temp Pulse Resp BP Pulse Ox O2 Del Method 98.3 F 88 19 H 101/75 100 05/20/22 21:00 05/21/22 08:00 05/21/22 08:00 05/21/22 09:00 05/21/22 08:00 05/21/22 05:00 Preop Diagnosis: pyelonephritis, acute kidney injury KARIS Was Beta Guerda taken within 24 hours: N/A Was Clonidine taken within 24 hours: N/A Social No alcohol and No tobacco former smoker Exam alert, oriented x 3, clear to auscultation bilaterally and regular rate & rhythm Airway Submandibular: within normal limits Cervical ROM: within normal limits Mallampati: Class II Comments: Comments: denies History/ROS No significant history except as noted Pulmonary None reported vape usage CV/HEM None reported acute renal insufficiency Hepatic None reported GI None reported Metabolic None reported Musc/skel None reported Neuropsych None reported denies drug use. discussed drug screening results, unknown etiology per patient Anesthetic Plan ASA status: 3 Anesthesia: Anesthesia Evaluation and MAC Risk of > 500 ml blood loss (7ml/kg in children): Yes, adequate IV access and fluids planned Medications/Allergies Home Medications Medication Instructions Recorded Confirmed Last Taken Type No Known Home Medications 05/17/22 05/17/22 Unknown History Allergies Allergy/AdvReac Type Severity Reaction Status Date / Time No Known Allergies Allergy Verified 05/17/22 11:01 Current Medications Generic Name Dose Route Start Last Admin Trade Name Freq PRN Reason Stop Dose Admin Acetaminophen 650 mg 05/17/22 14:06 05/20/22 06:16 Acetaminophen 325 Mg Tablet PO 650 mg Q6H PRN Administration Mild/Mod Pain Or Temp >/= 101 Enoxaparin Sodium 30 mg 05/20/22 15:00 05/20/22 17:36 Enoxaparin 30 Mg/0.3 Ml Syringe SUBCUT 30 mg Q24H ANUSHA Administration Sodium Chloride 1,000 mls @ 60 mls/hr 05/17/22 14:37 05/21/22 05:21 Sodium Chloride 0.9% IV Not Given .[id number] ANUSHA Linezolid 600 mg in 300 mls @ 300 mls/hr 05/18/22 18:00 05/21/22 06:28 Zyvox Premix IV Infused Q12H ANUSHA Infusion Protocol Meropenem 500 mg/ Sodium 50 mls @ 100 mls/hr 05/20/22 19:00 05/21/22 06:19 Chloride IV 100 mls/hr Q12H ANUSHA Administration Potassium Chloride 10 meq/ 1,005 mls @ 60 mls/hr 05/20/22 12:00 05/21/22 07:27 Sodium Chloride IV 60 mls/hr .[id number] ANUSHA Administration Lanolin 1 applic 05/19/22 21:35 05/19/22 23:40 Lanolin Oint 7 Gm TOPICAL 1 applic PRN PRN Administration DRYNESS Metoclopramide HCl 5 mg 05/19/22 11:31 05/20/22 13:23 Metoclopramide 5 Mg/Ml Sdv 2 Ml IVP 5 mg Q6H PRN Administration NAUSEA AND VOMITING Ondansetron HCl 4 mg 05/17/22 14:22 05/20/22 07:39 Ondansetron 2 Mg/Ml Sdv 2 Ml IVP 4 mg Q8H PRN Administration vomiting, or N/V if npo Pantoprazole Sodium 40 mg 05/17/22 14:30 05/20/22 14:47 Pantoprazole 40 Mg Sdv IVP 40 mg Q24H ANUSHA Administration Tramadol HCl 50 mg 05/20/22 11:39 05/20/22 19:12 Tramadol 50 Mg Tablet PO 50 mg Q4H PRN Administration MODERATE PAIN PFSH Anesthesia Surgical History No pertinent past surgical history Family History Other Hypertension Social History Smoking and tobacco status: never smoked Alcohol intake: never Substance/Drug Use: never Data Anesthesia 05/21/22 02:57 05/21/22 02:57 Short CBC 05/20/22 05/21/22 Range/Units 02:58 02:57 WBC 6.7 9.8 (4.0-10.0) 10^3/uL Hgb 11.1 L 11.3 L (11.5-15.3) g/dL Hct 32.3 L 32.8 L (37.0-47.0) % MCV 89.5 89.4 (81-99) fl Plt Count 194 239 (130-400) 10^3/cmm Neut % (Auto) 79.3 68.1 % Neut # (Auto) 5.32 6.69 (1.8-7.7) 10^3/uL BMP 05/20/22 05/20/22 05/21/22 02:58 13:07 02:57 Sodium 127 L 127 L 129 L Potassium 3.3 L 3.3 L 3.2 L Chloride 96 L 94 L 95 L Carbon Dioxide 17 L 18 L 21 L BUN 55 H 57 H 56 H Creatinine 6.0 H* 5.7 H* 5.3 H Glucose 89 105 92 Calcium 8.2 L 8.1 L 8.1 L Cardiac Enzymes 05/20/22 05/21/22 Range/Units 02:58 02:57 Creatine Kinase 7 L (26-192) U/L NT-Pro-B Natriuret Pep 56603 H 5069 H (0-125) pg/mL Liver Function 05/20/22 05/21/22 Range/Units 02:58 02:57 Total Bilirubin 1.7 H 0.9 (0.15-1.2) mg/dL AST 31 77 H (0-32) U/L ALT 17 25 (0-33) U/L Alkaline Phosphatase 202 H 256 H (35-105) U/L Albumin 2.0 L 2.0 L (3.5-5.2) g/dL Coags 05/20/22 05/21/22 02:58 02:57 C-Reactive Protein 193.6 H 104.2 H Microbiology 05/19/22 13:15 Blood Culture - Preliminary Blood NEGATIVE TO DATE 05/19/22 13:22 Blood Culture - Preliminary Blood NEGATIVE TO DATE Cardiac Studies: Echocardiogram 05/19/22
[2022-05-21 11:42] LABS: PROTEIN, TOTAL 4.6 g/dL (6.1-8.1)
--- NOTE | 2022-05-21 12:23 | PM.PN ---
Subjective Subjective: patimónica was seen this morning she feels significantly better, no fever, no chills, no nausea or vommiting Vitals/I&O/Wt Last Vital Signs Temp 98.3 F 05/20/22 21:00 Pulse 88 05/21/22 08:00 Resp 19 H 05/21/22 08:00 BP 101/75 05/21/22 09:00 Pulse Ox 100 05/21/22 08:00 O2 Del Method 05/21/22 05:00 05/20/22 05/21/22 05/21/22 22:59 06:59 14:59 Intake Total 750 / 1568 1205 / 2773 100 / 100 Output Total 650 / 1575 2900 / 4475 Balance 100 / -7 -1695 / -1702 100 / 100 Physical Exam Const: COMMON NORMALS: no acute distress and patient oriented x3 Resp: COMMON NORMALS: normal respiratory effort, No retractions, No use of accessory muscles and clear to auscultation bilaterally AUSCULTATION: clear to auscultation bilaterally Cardio: COMMON NORMALS: regular rate, regular rhythm, S1 normal heart sound present and S2 normal heart sound present RATE: regular rate RHYTHM: regular rhythm HEART SOUNDS: S1 normal heart sound present and S2 normal heart sound present GI: COMMON NORMALS: Normal to inspection, nondistended, normoactive bowel sounds present, Soft to palpation, non-tender, No hepatosplenomegaly present, no masses and no bruits PALPATION: Yes Soft to palpation and Yes No hepatosplenomegaly present Extremity: COMMON NORMALS: no pedal edema Neuro: COMMON NORMALS: patient oriented x3 Urinary Catheter Management: Contreras: Cath Placed During This Visit: yes Reason for Continuing Indwelling Catheter: Accurate Measurement of Urinary Output in Critically Ill Patients Urinary Catheter Date of Insertion: 05/18/22 Urinary Catheter Time of Insertion: 12:15 Data 05/21/22 02:57 05/21/22 02:57 Micro: Microbiology 05/17/22 16:00 Blood Culture - Final Blood Staphylococcus epidermidis 05/19/22 13:15 Blood Culture - Preliminary Blood NEGATIVE TO DATE 05/19/22 13:22 Blood Culture - Preliminary Blood NEGATIVE TO DATE A&P Assessment and plan (1) Pyelonephritis: (2) Acute kidney injury: (3) E-coli UTI: (4) Staphylococcus epidermidis bacteremia: Plan Right pyelonephritis, UTI, SAMANTHA -CT scan no evidence of obstructive uropathy, no hydronephrosis -renal us -Right kidney: Normal. No stones. No hydronephrosis.? 13.7 cm x 5.3 cm x 7.1 cm Left kidney: Normal. No stones. No hydronephrosis.? 12.9 cm x 5.3 cm x 5.9 cm Urinary bladder: Unremarkable.? Bilateral ureteral jets are visible -[place] CT scan did not reveal any significant radiologic evidence acute source of infection in the chest or spine -Transthoracic echocardiogram CONCLUSIONS ?LV systolic function is normal with EF of 55-60% ?Trace tricuspid regurgitation. ?No significant valvular disease noted ?No comparison studies are available -Admit to ICU for close monitoring -Monitor urine output closely,1400 cc, creatinine 6, serum sodium 137 -Monitor creatinine monitor serum sodium -Monitor CRP, Pro-Wero, still quite elevated? -Continue broad-spectrum antibiotic therapy coverage to meropenem, Zyvox -Urine culture positive for E. 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
[2022-05-21 12:36] LABS: Cytomegalovirus Antibody (IGM) <30.00 AU/mL
[2022-05-21 12:54] LABS: CENTROMERE B ANTIBODY <1.0 NEG AI (<1.0 NEG); JO-1 ANTIBODY <1.0 NEG AI (<1.0 NEG); RNP ANTIBODY 2.6 POS AI (<1.0 NEG); SCL-70 ANTIBODY <1.0 NEG AI (<1.0 NEG); SJOGREN'S ANTIBODY (SS-A) <1.0 NEG AI (<1.0 NEG); SM ANTIBODY <1.0 NEG AI (<1.0 NEG); SS-B <1.0 NEG AI (<1.0 NEG)
[2022-05-21 13:13] LABS: COMPLEMENT COMPONENT C3C 75 mg/dL (83-193); COMPLEMENT COMPONENT C4C 16 mg/dL (15-57)
[2022-05-21] MEDS: enoxaparin 30 mg/0.3 mL Syringe SUBCUT (14:01)
[2022-05-21] MEDS: pantoprazole 40 mg SDV IVP (14:03)
[2022-05-21 14:14] LABS: EBV IGM TEST <36.00 U/mL; EBV Viral Capsid AB IGM <36.00 U/mL
--- NOTE | 2022-05-21 14:29 | PC.RESP ---
ETCO2 SETUP UP FOR KARIS. 29
[2022-05-21 14:43] LABS: COMPLEMENT, TOTAL (CH50) 24 U/mL (31-60)
[2022-05-21 14:51] LABS: ANA SCREEN, IFA NEGATIVE (NEGATIVE)
--- NOTE | 2022-05-21 14:52 | ANE.PACU2 ---
Inpatient post-anesthesia follow up: Airway intact: Yes Vital signs: Temperature 98.3 F Pulse Rate 82 Respiratory Rate 18 Blood Pressure 125/84 Pulse Oximetry 97 Oxygen Delivery Me thod Room Air Oxygen Flow Rate Fraction of Inspir ed Oxygen Hydration adequate: Yes Nausea and vomiting: No Pain level: 2 Mental status: Baseline
[2022-05-21 14:56] LABS: KAPPA LIGHT CHAIN, FREE, SERUM 86.2 mg/L (3.3-19.4); KAPPA/LAMBDA LIGHT CHAINS FREE 1.24 (0.26-1.65); LAMBDA LIGHT CHAIN, FREE, SERU 69.5 mg/L (5.7-26.3)
[2022-05-21] MEDS: cefTRIAXone 1,000 MG in sodium chloride 0.9% (plus) 50 ML 100 MG IV (16:46)
[2022-05-21 17:11] LABS: THYROID PEROXIDASE ANTIBODIES <1 IU/mL (<9)
--- NOTE | 2022-05-21 20:25 | PC.NURSE ---
TRANSFER NOTE Pt received to floor from ICU at 1940. Alert and oriented. Says she is feeling so much better. Wanted to take a shower as soon as to room. helped her and says feels really good. Instructed on monitoring of urine output. Contreras just removed before coming to the floor. IV fluids at 60ml/hr rate. Says does have some aching across lower back but denies any need for pain med. night monitor applied
[2022-05-22] VITALS (8 sets, daily range): BP systolic 106–128; BP diastolic 66–80; PULSE 77–86; RESP 18–19; TEMP 36.4–36.9; O2SAT 97–100
[2022-05-22 04:26] LABS: Bilirubin Urine Neg (Negative); Blood Urine 2+ (Negative); Glucose Urine UA Norm (Normal); Ketones Urine Negative (Negative); Leukocyte Esterase Urine Trace (Negative); Nitrate Urine Negative (Negative); Protein Urine Trace (Negative); Renal Epithelial Cells Urine 0-4 /hpf; Squamous Epithelial Cell Urine 0-4 /hpf (0-5); Urine Appearance Clear (CLEAR); Urine Color Yellow (Yellow); Urobilinogen Urine Norm (Negative); WBC Urine 0-4 /hpf (0-5); pH Urine 5 (5-7)
[2022-05-22 04:27] LABS: Add Urine Culture? No; Oval Fat Bodies Urine 0-2 /hpf
[2022-05-22 06:10] LABS: Alanine Aminotransferase 19 U/L (0-33); Albumin Level 2.1 g/dL (3.5-5.2); Alkaline Phosphatase 223 U/L (35-105); Anion Gap 14.1 (5-19); Aspartate Amino Transferase 63 U/L (0-32); Blood Urea Nitrogen 54 mg/dL (6-20); Calcium 8.1 mg/dL (8.5-10.5); Carbon Dioxide 21 mmol/L (22-29); Chloride 102 mmol/L (98-107); Globulin 2.8 g/dL (1.3-4.6); Glomerular Filtration Rate 13.7 mL/min (90-130); Glucose 102 mg/dL (65-115); Magnesium 2.1 mg/dL (1.7-2.3); Osmolality Calculated 293 mOsm/kg (285-295); Potassium 3.1 mmol/L (3.5-5.1); Sodium 134 mmol/L (136-145); Total Bilirubin 0.6 mg/dL (0.15-1.2); Total Protein 4.9 g/dL (6.6-8.7)
--- NOTE | 2022-05-22 08:09 | P.PN_ITS ---
Subjective Subjective: uncomfortable. urinating on her own. no n/v/f/c/nunez/d/sob. michaels removed Medications: Reviewed: Yes Medication Review Details: Current Medications Acetaminophen (Acetaminophen 325 Mg Tablet) 650 mg PO Q6H PRN PRN Reason: Mild/Mod Pain Or Temp >/= 101 Last Admin: 05/20/22 06:16 Dose: 650 mg Enoxaparin Sodium (Enoxaparin 30 Mg/0.3 Ml Syringe) 30 mg SUBCUT Q24H [facility] Last Admin: 05/21/22 14:01 Dose: 30 mg Sodium Chloride (Sodium Chloride 0.9%) 1,000 mls @ 60 mls/hr IV .[id number] ANUSHA Last Admin: 05/21/22 05:21 Dose: Not Given Potassium Chloride 10 meq/ (Sodium Chloride) 1,005 mls @ 60 mls/hr IV .[id number] ANUSHA Last Admin: 05/22/22 05:04 Dose: 60 mls/hr Ceftriaxone Sodium 1,000 mg/ (Sodium Chloride) 50 mls @ 100 mls/hr IV Q24H [facility]; Protocol Last Infusion: 05/21/22 19:31 Dose: Infused Lanolin (Lanolin Oint 7 Gm) 1 applic TOPICAL PRN PRN PRN Reason: DRYNESS Last Admin: 05/19/22 23:40 Dose: 1 applic Metoclopramide HCl (Metoclopramide 5 Mg/Ml Sdv 2 Ml) 5 mg IVP Q6H PRN PRN Reason: NAUSEA AND VOMITING Last Admin: 05/20/22 13:23 Dose: 5 mg Morphine Sulfate (Morphine 4 Mg/Ml Sdv 1 Ml) 1 mg IVP Q6H PRN PRN Reason: SEVERE PAIN Ondansetron HCl (Ondansetron 2 Mg/Ml Sdv 2 Ml) 4 mg IVP Q8H PRN PRN Reason: vomiting, or N/V if npo Last Admin: 05/20/22 07:39 Dose: 4 mg Pantoprazole Sodium (Pantoprazole 40 Mg Sdv) 40 mg IVP Q24H [facility] Last Admin: 05/21/22 14:03 Dose: 40 mg Tramadol HCl (Tramadol 50 Mg Tablet) 50 mg PO Q4H PRN PRN Reason: MODERATE PAIN Last Admin: 05/20/22 19:12 Dose: 50 mg Vitals/I&O/Wt Last Vital Signs Temp 98.0 F 05/22/22 04:00 Pulse 79 05/22/22 06:00 Resp 18 05/22/22 04:00 BP 123/66 05/22/22 04:00 Pulse Ox 97 05/22/22 04:00 O2 Del Method 05/21/22 05:00 05/21/22 05/22/22 05/22/22 22:59 06:59 14:59 Intake Total 100 / 200 1605 / 1805 Output Total 1300 / 1300 450 / 1750 Balance -1200 / -1100 1155 / 55 Weight last 48 hrs Weight 83.189 kg Physical Exam Narrative: nard, in bed heent- nc/at, eomi lungs clear heart reg abd soft, nt, nd, + bs ext no edema neuro- a,a, o x 3 Urinary Catheter Management: Michaels: Cath Placed During This Visit: yes Reason for Continuing Indwelling Catheter: Accurate Measurement of Urinary Output in Critically Ill Patients Urinary Catheter Date of Insertion: 05/18/22 Urinary Catheter Time of Insertion: 12:15 Data 05/21/22 02:57 05/22/22 05:41 Micro: Microbiology 05/17/22 16:00 Blood Culture - Final Blood Staphylococcus epidermidis A&P Assessment and plan (1) Acute kidney injury: seen via telemedicine with assistance of RN at bedside Plan 1. Acute kidney injury: urine output much improved. Cr lower. No indication for dialysis at this time. Serologic workup for GN, vasculitis sent -working dx is atn from infection 2. Pyelonephritis: UC e.coli. BC 07/02 staph epi probably contaminant. Antibiotics per hospitalist. KARIS done on 05/21/22 3. d/c ivf 4. Hyponatremia: hypervolemic, improving 5. Metabolic acidosis: resolved 6. Hypokalemia. replace Attestations Medical Necessity Statement*: as per medicine Time Spent in Patient Care: 16 - 35 minutes (>than 50% of time spent in counselling and/or direct pt care on unit) . Coding Level of Care Code Acute Environmental Sampler for [facility] Diagnoses Acute kidney injury N17.9
[2022-05-22] MEDS: potassium chloride ER 20 mEq Tablet 40 MEQ PO (09:41)
--- NOTE | 2022-05-22 11:31 | P.PN_ITS ---
Subjective Subjective: Patient was seen this morning, she tells me she feels a lot better, no fevers Vitals/I&O/Wt Last Vital Signs Temp 98.0 F 05/22/22 11: Pulse 78 05/22/22 11:22 Resp 18 05/22/22 11:22 BP 117/79 05/22/22 11:22 Pulse Ox 100 05/22/22 11:22 O2 Del Method 05/22/22 11:22 05/21/22 05/22/22 05/22/22 22:59 06:59 14:59 Intake Total 100 / 200 1605 / 1805 360 / 360 Output Total 1300 / 1300 450 / 1750 Balance -1200 / -1100 1155 / 55 360 / 360 Weight last 48 hrs Weight 83.189 kg Physical Exam Const: COMMON NORMALS: no acute distress and patient oriented x3 Resp: COMMON NORMALS: normal respiratory effort, No retractions, No use of accessory muscles and clear to auscultation bilaterally AUSCULTATION: clear to auscultation bilaterally Cardio: COMMON NORMALS: regular rate, regular rhythm, S1 normal heart sound present and S2 normal heart sound present RATE: regular rate RHYTHM: regular rhythm HEART SOUNDS: S1 normal heart sound present and S2 normal heart sound present GI: COMMON NORMALS: Normal to inspection, nondistended, normoactive bowel sounds present and non-tender Extremity: COMMON NORMALS: no clubbing, cyanosis or edema and no pedal edema Neuro: COMMON NORMALS: patient oriented x3 Psych: COMMON NORMALS: mental status grossly normal Urinary Catheter Management: Contreras: Cath Placed During This Visit: yes Reason for Continuing Indwelling Catheter: Accurate Measurement of Urinary Output in Critically Ill Patients Urinary Catheter Date of Insertion: 05/18/22 Urinary Catheter Time of Insertion: 12:15 Data 05/21/22 02:57 05/22/22 05:41 Micro: Microbiology 05/17/22 16:00 Blood Culture - Final Blood Staphylococcus epidermidis A&P Assessment and plan (1) Pyelonephritis: (2) Acute kidney injury: (3) E-coli UTI: (4) Staphylococcus epidermidis bacteremia: Plan Right pyelonephritis, UTI, SAMANTHA -CT scan no evidence of obstructive uropathy, no hydronephrosis -renal us -Right kidney: Normal. No stones. No hydronephrosis.? 13.7 cm x 5.3 cm x 7.1 cm Left kidney: Normal. No stones. No hydronephrosis.? 12.9 cm x 5.3 cm x 5.9 cm Urinary bladder: Unremarkable.? Bilateral ureteral jets are visible -[place] CT scan did not reveal any significant radiologic evidence acute source of infection in the chest or spine -Transthoracic echocardiogram CONCLUSIONS ?LV systolic function is normal with EF of 55-60% ?Trace tricuspid regurgitation. ?No significant valvular disease noted ?No comparison studies are available -Transesophageal echocardiogram no significant vegetation seen -Monitor creatinine monitor serum sodium -Monitor CRP, Pro-Wero, still quite elevated? -De-escalated antibiotic therapy to Rocephin -Urine culture positive for E. 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
[2022-05-22] MEDS: enoxaparin 30 mg/0.3 mL Syringe SUBCUT (16:23)
[2022-05-22] MEDS: pantoprazole 40 mg SDV IVP (16:24)
[2022-05-22] MEDS: cefTRIAXone 1,000 MG in sodium chloride 0.9% (plus) 50 ML 100 MG IV (16:24)
[2022-05-23] VITALS: BP 111/73; PULSE 81; RESP 18; TEMP 36.8; O2SAT 98
[2022-05-23 04:00] VITALS: BP 124/87; PULSE 76; RESP 18; TEMP 36.7; O2SAT 99
[2022-05-23 05:55] VITALS: PULSE 78
[2022-05-23 06:11] LABS: Hematocrit 30.3 % (37.0-47.0); Hemoglobin 10.1 g/dL (11.5-15.3); Mean Corpuscular HGB Conc 33.3 g/dL (30.0-36.0); Mean Corpuscular Hemoglobin 30.6 pg (28.0-34.0); Mean Corpuscular Volume 91.8 fl (81-99); Mean Platelet Volume 9.3 fL (7.4-10.4); Platelet Count 292 10^3/cmm (130-400); Red Cell Distribution Width 13.2 % (12.1-15.1); White Blood Count 11.8 10^3/uL (4.0-10.0)
[2022-05-23 06:32] LABS: Alanine Aminotransferase 18 U/L (0-33); Albumin Level 2.4 g/dL (3.5-5.2); Alkaline Phosphatase 195 U/L (35-105); Anion Gap 13.6 (5-19); Aspartate Amino Transferase 49 U/L (0-32); Blood Urea Nitrogen 41 mg/dL (6-20); Carbon Dioxide 21 mmol/L (22-29); Chloride 107 mmol/L (98-107); Globulin 2.8 g/dL (1.3-4.6); Glomerular Filtration Rate 24.4 mL/min (90-130); Glucose 119 mg/dL (65-115); Magnesium 1.9 mg/dL (1.7-2.3); Osmolality Calculated 297 mOsm/kg (285-295); Phosphorus 3.5 mg/dL (2.5-4.5); Potassium 3.6 mmol/L (3.5-5.1); Sodium 138 mmol/L (136-145); Total Bilirubin 0.4 mg/dL (0.15-1.2); Total Protein 5.2 g/dL (6.6-8.7)
[2022-05-23 06:38] LABS: Procalcitonin 0.49 ng/mL (0-0.5)
[2022-05-23 06:43] LABS: Slide Review Slide Review Perform
[2022-05-23 06:46] LABS: Absolute Eosinophils 0.5 10^3/cmm (0.0-0.7); Absolute Segmented Neutrophil 5.9 10/cmm (1.6-7.1); Eosinophils 5 %; Lymphocytes 18 %; Lymphocytes Absolute 2.2 10^3/cmm (1.2-3.4); Monocytes Absolute 0.6 10^3/cmm (0.1-0.6); Segmented Neutrophils 50 %; Total Cells Counted 100 (0-100)
[2022-05-23 06:47] LABS: Absolute Neutrophil 7.9 10^3/cmm (1.4-6.5); Platelet Estimate Normal (Normal)
[2022-05-23 08:00] VITALS: BP 118/74; PULSE 76; RESP 16; TEMP 36.6; O2SAT 100
--- NOTE | 2022-05-23 08:19 | P.PN_ITS ---
Subjective Subjective: feels much better. Drinking fluids well. Stomach fills quickly when she eats. ambulating, urinating, denies pain. No pain medications in 2 days Vitals/I&O/Wt Last Vital Signs Temp 97.8 F 05/23/22 08:00 Pulse 76 05/23/22 08:00 Resp 16 05/23/22 08:00 BP 118/74 05/23/22 08:00 Pulse Ox 100 05/23/22 08:00 O2 Del Method 05/23/22 08:00 05/22/22 05/23/22 05/23/22 22:59 06:59 14:59 Intake Total 1005 / 1657 1000 / 2657 Output Total 1925 / 2725 1575 / 4300 Balance -920 / -1068 -575 / -1643 Weight last 48 hrs Weight 83.189 kg Physical Exam Const: COMMON NORMALS: no acute distress and alert Extremity: NARRATIVE EXTREMITY EXAM: trace edema Neuro: SENSORIUM/ORIENTATION: Yes alert Urinary Catheter Management: Contreras: Cath Placed During This Visit: yes Reason for Continuing Indwelling Catheter: Accurate Measurement of Urinary Output in Critically Ill Patients Urinary Catheter Date of Insertion: 05/18/22 Urinary Catheter Time of Insertion: 12:15 Data 05/23/22 05:35 05/23/22 05:35 Other Labs: low C3, CH50, normal C4 [place] CLINICAL APPLICATIONS SPECIALIST + K/L 1.24 ANCA pending Micro: Microbiology 05/17/22 16:07 Blood Culture - Final Blood NO GROWTH AFTER 5 DAYS A&P Assessment and plan (1) Acute kidney injury: seen via telemedicine with assistance of RN at bedside Plan 1. Acute kidney injury due to pyelonephritis, volume depletion, ATN. Cr falling, diuresing. 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 Pyelonephritis: UC e.coli. BC 07/02 staph epi probably contaminant. Antibiotics per hospitalist. 3. Hyponatremia, Metabolic acidosis, Hypokalemia. resolved Recommend: stable for discharge from renal standpoint. discontinue IVF. 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
--- NOTE | 2022-05-23 09:13 | P.DS_ITS ---
Discharge Providers Date of Admission: 05/17/22 14:06 Date of Discharge: May 23, 2022 Attending Provider at Admission: Rick Rebollar MD Attending Provider at Discharge: Rick Rebollar MD Diagnoses at Discharge Discharge Diagnosis (1) Acute kidney injury: Status: Acute Reason for Visit Reason for Visit: Extreme lower back pain and throwing up Hospital Course Hospital Course Ryanne Rico is a 31 year old female with no significant past medical history who presents to [facility] due to fatigue, malaise, right lower back pain, flank pain, nausea, vomiting, inability keep down solids or liquids for the last 48 hours.? Reports subjective fevers, chills, nausea, vomiting, no abdominal pain, but does have severe back pain, right flank pain.? She does vape, denies drug use, no alcohol use.? She has not been Able to keep anything solid or liquid down for the last 24 to 48 hours.? She denies being , she has never had UTIs in the past, no history of nephrolithiasis Patient was admitted to [facility] for UTI, SAMANTHA, right pyelonephritis. She was admitted to ICU received broad-spectrum antibiotic therapy, fluid therapy, nephrology was consulted. Overall patient's clinical condition was slow to improve, however her urine cultures grew E. coli which was pansensitive, her kidney function improved her urine output improved, and she was moved to the general medical floors. She remained afebrile, ambulatory, creatinine on discharge was 2.3, urine output 4300. Discharged with close follow-up primary care provider in 1 week, recheck kidney function, advised to hydrate well, advised to avoid all nephrotoxic agents Patient's 1 blood culture out of 3 was positive for staph epi, likely contamination, given her slow clinical improvement I did a broad work-up, her transesophageal echocardiogram was negative for any endocarditis, paul CT scan had no focal signs of infection, she remained afebrile, repeat blood cultures have been unremarkable. So thus I think this is likely a contamination, her Zyvox was stopped and she was monitored over 48 hours she continued to cl inically improved. Follow-up with primary care provider for laboratory work, follow-up test results Physical Exam Const: COMMON NORMALS: no acute distress and patient oriented x3 Resp: COMMON NORMALS: normal respiratory effort, No retractions, No use of accessory muscles and clear to auscultation bilaterally AUSCULTATION: clear to auscultation bilaterally Cardio: COMMON NORMALS: regular rate, regular rhythm, S1 normal heart sound present and S2 normal heart sound present RATE: regular rate RHYTHM: r egular rhythm HEART SOUNDS: S1 normal heart sound present and S2 normal heart sound present GI: COMMON NORMALS: Normal to inspection, nondistended, normoactive bowel sounds present and non-tender Extremity: COMMON NORMALS: no pedal edema Neuro: COMMON NORMALS: patient oriented x3 Psych: COMMON NORMALS: mental status grossly normal Urinary Catheter Management: Contreras: Cath Placed During This Visit: yes Reason for Continuing Indwelling Catheter: Accurate Measurement of Urinary Output in Critically Ill Patients Urinary Catheter Date of Insertion: 05/18/22 Urinary Catheter Time of Insertion: 12:15 Discharge Data Studies Completed and Pending Completed Studies During Hospitalization Category Date Time Status CT abdomen pelvis wo con [id number] Stat Cat Scan 05/17/22 12:[address] cervical spin wo con* [id number] Routine Cat Scan 05/19/22 10:[address] chest wo con [id number] Routine Cat Scan 05/19/22 10:[address] head wo con* [id number] Routine Cat Scan 05/19/22 10:[address] lumbar spine wo con* [id number] Routine Cat Scan 05/19/22 10:[address] thoracic spin wo con* [id number] Routine Cat Scan 05/19/22 10:35 Completed CV. echo complete* [id number] Routine Ultrasound 05/19/22 07:00 Completed CV. echo transesophageal [id number] Routine Ultrasound 05/21/22 11:02 Completed US renal BI* [id number] Routine Ultrasound 05/18/22 07:48 Completed Pending at discharge Category Date Time Status [place] Profile Rheumatology Stat Lab 05/20/22 13:07 Results Anti-Neutrophil Cytoplasmic AB Routine Lab 05/21/22 Received Blood Culture Stat Lab 05/19/22 13:15 Results C Reactive Protein AM LABS Lab 05/24/22 04:00 Ordered C Reactive Protein AM LABS Lab 05/25/22 04:00 Ordered COVID OZH [Coronavirus PCR] Routine Lab 05/18/22 12:11 Uncollected Complement Total (CH50) Routine Lab 05/21/22 Received Complete Blood Count w/Auto AM LABS Lab 05/24/22 04:00 Ordered Complete Blood Count w/Auto AM LABS Lab 05/25/22 04:00 Ordered Comprehensive Metabolic Panel AM LABS Lab 05/24/22 04:00 Ordered Comprehensive Metabolic Panel AM LABS Lab 05/25/22 04:00 Ordered Drug Screen Serum [Serum Drug Panel 7] Routine Lab 05/19/22 10:17 Received Ethylene Glycol Routine Lab 05/20/22 13:07 Received FREE LIGHT CHAIN SERUM [KAPPA/LAMBDA LIGHT FREE SERUM] Lab 05/20/22 13:07 Results Routine Glomerular Basement AB IGG Routine Lab 05/20/22 13:07 Results Magnesium AM LABS Lab 05/24/22 04:00 Ordered Magnesium AM LABS Lab 05/25/22 04:00 Ordered Metals Acute Poisoning Panel Routine Lab 05/20/22 13:07 Received Phosphorus AM LABS Lab 05/24/22 04:00 Ordered Phosphorus AM LABS Lab 05/25/22 04:00 Ordered Procalcitonin AM LABS Lab 05/24/22 04:00 Ordered Procalcitonin AM LABS Lab 05/25/22 04:00 Ordered Serum Protien Electrophoresis [Total Protein Lab 05/20/22 13:07 Results Electrophoresis] Routine Radiology Impressions Abdomen/Pelvis CT 05/17/22 12:33 IMPRESSION: Right perinephric stranding which can be a sign of acute pyelonephritis. Renal Ultrasound 05/18/22 07:48 IMPRESSION: Unremarkable kidneys and bladder. Cervical Spine CT 05/19/22 10:35 IMPRESSION: 1. No destructive bone lesions. 2. No compression upon the cord is identified on this unenhanced study. 3. Mild foraminal osteophytosis. Chest CT 05/19/22 10:35 IMPRESSION: 1. Increasing, bilateral bilateral similar consolidations at the lung bases and small effusions. Most consistent with dependent atelectasis. 2. Small pleural effusions are new since 05/17/2022. 3. Although incompletely visualized on this examination the liver and spleen appear enlarged. 4. No cardiomegaly. Head CT 05/19/22 10:35 IMPRESSION: Negative head CT. Lumbar Spine CT 05/19/22 10:35 IMPRESSION: 1. No significant central or foraminal stenosis. 2. No bone destruction. 3. Very minimal soft tissue stranding around the kidneys. Thoracic Spine CT 05/19/22 10:35 IMPRESSION: 1. No high-grade central or foraminal stenosis. 2. No mass effect upon the cord or heterogeneity. 3. Although only partially visualized liver and spleen do appear enlarged. 4. Bilateral lower lobe areas of atelectasis. Developing pneumonia may appear similar. Laboratory Results WBC 11.8 10^3/uL (4.0-10.0) H 05/23/22 05:35 RBC 3.30 10^6/uL (4.1-5.3) L 05/23/22 05:35 Hgb 10.1 g/dL (11.5-15.3) L 05/23/22 05:35 Hct 30.3 % (37.0-47.0) L 05/23/22 05:35 MCV 91.8 fl (81-99) 05/23/22 05:35 MCH 30.6 pg (28.0-34.0) 05/23/22 05:35 MCHC 33.3 g/dL (30.0-36.0) 05/23/22 05:35 RDW 13.2 % (12.1-15.1) 05/23/22 05:35 Plt Count 292 10^3/cmm (130-400) 05/23/22 05:35 MPV 9.3 fL (7.4-10.4) 05/23/22 05:35 Neut % (Auto) 68.1 % 05/21/22 02:57 Lymph % (Auto) Not Reportable 05/23/22 05:35 [place] % (Auto) Not Reportable 05/23/22 05:35 Eos % (Auto) 5.0 % 05/21/22 02:57 Baso % (Auto) 0.5 % 05/21/22 02:57 Neut # (Auto) 6.69 10^3/uL (1.8-7.7) 05/21/22 02:57 Lymph # (Auto) Not Reportable 05/23/22 05:35 [place] # (Auto) Not Reportable 05/23/22 05:35 Eos # (Auto) 0.5 10^3/uL (0.0-0.8) 05/21/22 02:57 Baso # (Auto) 0.1 10^3/uL (0.0-0.1) 05/21/22 02:57 Nucleated RBC % (auto) 0 % 05/21/22 02:57 Total Counted 100 (0-100) 05/23/22 05:35 Atypical Lymphs % 1.0 % (0-5) 05/23/22 05:35 Absolute Neutrophils 7.9 10^3/cmm (1.4-6.5) H 05/23/22 05:35 Segmented Neutrophils 50 % 05/23/22 05:35 Abs Segm Neuts (Man) 5.9 10/cmm (1.6-7.1) 05/23/22 05:35 Band Neutrophils 17.0 % 05/23/22 05:35 Abs Band Neuts (Man) 2.0 10^3/cmm (0.0-1.2) H 05/23/22 05:35 Absolute Lymphocytes 2.2 10^3/cmm (1.2-3.4) 05/23/22 05:35 Lymphocytes (Manual) 18 % 05/23/22 05:35 Monocytes (Manual) 5.0 % 05/23/22 05:35 Absolute Monocytes 0.6 10^3/cmm (0.1-0.6) 05/23/22 05:35 Eosinophils (Manual) 5 % 05/23/22 05:35 Absolute Eosinophils 0.5 10^3/cmm (0.0-0.7) 05/23/22 05:35 Basophils (Manual) 0.0 % 05/23/22 05:35 Absolute Basophils 0.0 10^3/cmm (0.0-0.2) 05/23/22 05:35 Metamyelocytes 2.0 % 05/23/22 05:35 Myelocytes 2.0 % 05/23/22 05:35 Nucleated RBCs # 0.0 /100WBC 05/21/22 02:57 Platelet Estimate Normal (Normal) 05/23/22 05:35 ESR 55 mm/hr (0-15) H 05/19/22 05:35 Sodium 138 mmol/L (136-145) 05/23/22 05:35 Potassium 3.6 mmol/L (3.5-5.1) 05/23/22 05:35 Chloride 107 mmol/L (98-107) 05/23/22 05:35 Carbon Dioxide 21 mmol/L (22-29) L 05/23/22 05:35 Anion Gap 13.6 (5-19) 05/23/22 05:35 BUN 41 mg/dL (6-20) H 05/23/22 05:35 Creatinine 2.3 mg/dL (0.5-0.9) H 05/23/22 05:35 GFR Calculation 24.4 mL/min (90-130) L 05/23/22 05:35 Glucose 119 mg/dL (65-115) H 05/23/22 05:35 Estimat Average Glucose 91 05/17/22 11:41 Hemoglobin A1c 4.8 % (4.0-6.0) 05/17/22 11:41 Calculated Osmolality 297 mOsm/kg (285-295) H 05/23/22 05:35 Lactic Acid 1.6 mmol/L (0.5-2.2) 05/18/22 09:47 Lactate 2.0 mmol/L (0.5-2.2) 05/17/22 11:41 Calcium 8.0 mg/dL (8.5-10.5) L 05/23/22 05:35 Phosphorus 3.5 mg/dL (2.5-4.5) 05/23/22 05:35 Magnesium 1.9 mg/dL (1.7-2.3) 05/23/22 05:35 Total Bilirubin 0.4 mg/dL (0.15-1.2) 05/23/22 05:35 AST 49 U/L (0-32) H 05/23/22 05:35 ALT 18 U/L (0-33) 05/23/22 05:35 Alkaline Phosphatase 195 U/L (35-105) H 05/23/22 05:35 Creatine Kinase 7 U/L (26-192) L 05/21/22 02:57 C-Reactive Protein 45.0 mg/L (0.0-4.9) H 05/23/22 05:35 NT-Pro-B Natriuret Pep 5069 pg/mL (0-125) H 05/21/22 02:57 Total Protein 5.2 g/dL (6.6-8.7) L 05/23/22 05:35 Albumin 2.4 g/dL (3.5-5.2) L 05/23/22 05:35 Globulin 2.8 g/dL (1.3-4.6) 05/23/22 05:35 Procalcitonin 0.49 ng/mL (0-0.5) 05/23/22 05:35 TSH 1.17 uIU/mL (0.27-4.20) 05/17/22 11:41 HCG, Qual Negative (Negative) 05/17/22 12:06 Urine Color Yellow (Yellow) 05/22/22 03:50 Urine Appearance Clear (CLEAR) 05/22/22 03:50 Urine pH 5 (5-7) 05/22/22 03:50 Ur Specific [place] 1.010 (1.005-1.030) 05/22/22 03:50 Urine Protein Trace (Negative) 05/22/22 03:50 Urine Glucose (UA) Norm (Normal) 05/22/22 03:50 Urine Ketones Negative (Negative) 05/22/22 03:50 Urine Blood 2+ (Negative) H 05/22/22 03:50 Urine Nitrate Negative (Negative) 05/22/22 03:50 Urine Bilirubin Neg (Negative) 05/22/22 03:50 Urine Urobilinogen Norm mg/dL (Negative) 05/22/22 03:50 Ur Leukocyte Esterase Trace (Negative) H 05/22/22 03:50 Urine RBC 10-15 /hpf (0-2) H 05/22/22 03:50 Urine WBC 0-4 /hpf (0-5) H 05/22/22 03:50 Ur Squamous Epith Cells 0-4 /hpf (0-5) H 05/22/22 03:50 Ur Renal Epithelial Cell 0-4 /hpf 05/22/22 03:50 Amorphous Sediment Not Reportable 05/22/22 03:50 Urine Bacteria None /hpf (NONE) 05/22/22 03:50 Ur Oval Fat Bodies 0-2 /hpf 05/22/22 03:50 Ur Random Sodium 32 mmol/L 05/18/22 11:00 Urine Creatinine 146 mg/dL (28-217) 05/18/22 11:00 Salicylates < 0.3 mg/dL (3-10) L 05/20/22 13:07 Urine Opiates Screen Positive ng/mL (Negative) H 05/18/22 17:40 Ur Barbiturates Screen Negative ng/mL (Negative) 05/18/22 17:40 Ur Phencyclidine Scrn Negative ng/mL (Negative) 05/18/22 17:40 Ur Amphetamines Screen Positive ng/mL (Negative) H 05/18/22 17:40 U Benzodiazepines Scrn Negative ng/mL (Negative) 05/18/22 17:40 Urine Cocaine Screen Negative ng/mL (Negative) 05/18/22 17:40 U Marijuana (THC) Screen Negative ng/mL (Negative) 05/18/22 17:40 Serum Ketones Negative (Negative) 05/17/22 11:41 [place] IFA Animal Tis Res Negative (NEGATIVE) 05/20/22 13:07 BRAD-1 Antibody <1.0 neg AI (<1.0 NEG) 05/20/22 13:07 SS-A Antibody <1.0 neg AI (<1.0 NEG) 05/20/22 13:07 SS-B Antibody <1.0 neg AI (<1.0 NEG) 05/20/22 13:07 Sm (De Jesus) Antibody <1.0 neg AI (<1.0 NEG) 05/20/22 13:07 CASE MANAGEMENT ASSOCIATE Antibody 2.6 pos AI (<1.0 NEG) A 05/20/22 13:07 Scl-70 Antibody <1.0 neg AI (<1.0 NEG) 05/20/22 13:07 Centromere B Antibody <1.0 neg AI (<1.0 NEG) 05/20/22 13:07 Thyroid Peroxidase Ab <1 IU/mL (<9) 05/20/22 13:07 Complement C3 72 mg/dL (90-180) L 05/21/22 Unknown Complement C3c 75 mg/dL (83-193) L 05/20/22 13:07 Complement C4 16 mg/dL (10-40) 05/21/22 Unknown Complement C4c 16 mg/dL (15-57) 05/20/22 13:07 CH50 Classical Pathway 24 U/mL (31-60) L 05/20/22 13:07 Free [place] Light Chains 86.2 mg/L (3.3-19.4) H 05/20/22 13:07 Free Lambda Light Chain 69.5 mg/L (5.7-26.3) H 05/20/22 13:07 Free [place]/Lambda Ratio 1.24 (0.26-1.65) 05/20/22 13:07 CMV IgG Ab 4.40 U/mL H 05/20/22 13:07 CMV IgM Ab <30.00 AU/mL 05/20/22 13:07 EBV IgG Ab 125.00 U/mL H 05/20/22 13:07 EBV IgM Ab <36.00 U/mL 05/20/22 13:07 EBV Capsid Ag IgG, IgM <36.00 U/mL 05/20/22 13:07 EBV Nuclear Antigen 98.80 U/mL H 05/20/22 13:07 EBV Interpretation See note 05/20/22 13:07 Hepatitis A IgM Ab Non-reactive (Nonreactive) 05/19/22 10:17 Hep Bs Antigen Non-reactive (Nonreactive) 05/19/22 10:17 Hep B Core IgM Ab Non-reactive (Nonreactive) 05/19/22 10:17 Hepatitis C Antibody Non-reactive (Nonreactive) 05/19/22 10:17 HIV 1&2 Ab & HIV 1 Ag Non-reactive (Non-Reactiv) 05/19/22 10:17 HIV 1&2 Antibody Non-reactive (Non-Reactiv) 05/19/22 10:17 Influenza Type A Ag negative (Negative) 05/18/22 12:30 Influenza Type B Ag negative (Negative) 05/18/22 12:30 Vitals Last Vital Signs Temp 97.8 F 05/23/22 08:00 Pulse 76 05/23/22 08:00 Resp 16 05/23/22 08:00 BP 118/74 05/23/22 08:00 Pulse Ox 100 05/23/22 08:00 O2 Del Method 05/23/22 08:00 Discharge Plan Discharge Patient Disposition: Home Condition: Stable Prescriptions: New cefdinir 300 mg capsule 300 mg PO BID 8 Days Qty: 16 0RF No Action No Known Home Medications Discharge Orders: Discharge Order (Routine); Ordered 05/23/22 Ordered By: Rick Rebollar Referrals: Yara Arthur APN [Referring] - 1 week Discharge Diet: Regular and Cardiac Discharge Activity: Resume usual activity Patient Instructions: Opioid Safety Activity Restrictions/Additional Instructions: - Please follow-up with primary care provider in 1 week -Please hydrate well. -Please avoid all types of NSAIDs Discharge Attestations Time Spent in Discharge Care*: less than 30 min Quality Metrics Clinical Quality Measures [ No reported AMI, CVA or VTE this stay] Coding Level of Care Code Acute Chg FW DC note Diagnoses Acute kidney injury N17.9
[2022-05-23 13:13] LABS: Complement Total (CH50) 18 U/mL (31-60)
[2022-05-23 15:02] LABS: ALPHA 1 GLOBULIN 0.7 g/dL (0.2-0.3); ALPHA 2 GLOBULIN 0.9 g/dL (0.5-0.9); BETA 1 GLOBULIN 0.3 g/dL (0.4-0.6); BETA 2 GLOBULIN 0.2 g/dL (0.2-0.5); GAMMA GLOBULIN 0.5 g/dL (0.8-1.7); Glomerular Bsmt Membrane IGG <1.0 AI
[2022-05-24 13:17] LABS: DNA AB (DS) CRITHIDIA,IFA NEGATIVE (NEGATIVE)
[2022-05-24 13:53] LABS: Ethylene Glycol <10.0 mg/L (***)
[2022-05-26 08:52] LABS: Amphetamine negative; Barbiturates negative; Benzodiazepines negative; Cocaine Metabolites negative; Codeine negative; Hydrocodone negative; Hydromorphone negative; Marijuana(Tetrahydrocannabino) negative; Morphine 340 ng/mL; Opiates POSITIVE; PCP (Phencyclidine) negative
[2022-05-27 12:12] LABS: ANCA Screen NEGATIVE (NEGATIVE)
[2022-06-05 10:34] LABS: Metal Acute Poison Antimony 5.8 mcg/L; Metal Acute Poison Arsenic None Detected mcg/L; Metal Acute Poison Bismuth None Detected mcg/L; Metal Acute Poison Copper 100 mcg/dL; Metal Acute Poison Molybden None Detected mcg/L; Metal Acute Poison Nickel (B) None Detected mcg/L; Metal Acute Poison Selenium 130 mcg/L; Metal Acute Poison Tellurium None Detected mcg/L; Metal Acute Poison Zinc 390 mcg/dL; Metal Acute Poisoning Cadmium None Detected mcg/L; Metal Acute Poisoning Chromium None Detected mcg/L; Metal Acute Poisoning Cobalt None Detected mcg/L
== END 2022-05-23 11:02 | disposition home or self-care (01) | DRG 683 ==
LOC: ER 14:05 → ICU 14:26 → MEDSURG 05-21 20:01
PROVIDERS: Internal Medicine; Admitting Provider Family Medicine; Emergency Provider Student in an Organized Health Care Education/Training Program; Visit Provider Family Medicine
DX: N17.9 Acute kidney failure, unspecified (principal); E87.1 Hypo-osmolality and hyponatremia; E87.20 Acidosis, unspecified; N39.0 Urinary tract infection, site not specified; G93.40 Encephalopathy, unspecified; F17.290 Nicotine dependence, other tobacco product, uncomplicated; M54.50 Low back pain, unspecified; F15.90 Other stimulant use, unspecified, uncomplicated; B96.20 Unspecified Escherichia coli [E. coli] as the cause of diseases classified elsewhere; E87.70 Fluid overload, unspecified; E87.6 Hypokalemia; N12 Tubulo-interstitial nephritis, not specified as acute or chronic
CPT/HCPCS: 36415; 51702; 70450; 71250; 72125; 72128; 72131; 74176; 76770; 80048; 80053; 80074; 80306; 80307; 81001; 81025; 82009; 82175; 82300; 82495; 82525; 82550; 82575; 82693; 83018; 83036; 83520; 83605; 83735; 83825; 83880; 83883; 83885; 84100; 84145; 84155; 84165; 84255; 84295; 84300; 84443; 84630; 85007; 85025; 85651; 86036; 86140; 86160; 86162; 86235; 86255; 86376; 86664; 86665; 87040; 87077; 87086; 87150; 87186; 87205; 87804; 87806; 93306; 93312; 93320; 93325; 96365; 96372; 96375; 99285; C9113; J0696; J1170; J1580; J1650; J1885; J1940; J2020; J2185; J2270; J2405; J2765; J3370; J3475; J3480; J7030; J7050; J7120; Q3014

== ENCOUNTER → 2022-05-26 17:31 | Outpatient (BNVA) | payer OTHER, SELFPAY | PROVIDERS: Visit Provider Nurse Practitioner Family | DX: N17.9 Acute kidney failure, unspecified (principal); N39.0 Urinary tract infection, site not specified; B96.20 Unspecified Escherichia coli [E. coli] as the cause of diseases classified elsewhere; Z80.0 Family history of malignant neoplasm of digestive organs; N12 Tubulo-interstitial nephritis, not specified as acute or chronic; M25.50 Pain in unspecified joint; M79.10 Myalgia, unspecified site; Z09 Encounter for follow-up examination after completed treatment for conditions other than malignant neoplasm | CPT/HCPCS: 80053; 82542; 82575; 85651; 86140; 86200; 86431 ==

== ENCOUNTER 2022-05-30 17:31 | Emergency (ER) | payer OTHER, SELFPAY ==
[2022-05-30 17:43] VITALS: PULSE 109; RESP 15; TEMP 36.7; O2SAT 98; BMI 27.8
[2022-05-30 18:48] LABS: Add Urine Microscopic? YES; Bilirubin Urine Neg (Negative); Blood Urine Neg (Negative); Glucose Urine UA Norm (Normal); Ketones Urine Negative (Negative); Leukocyte Esterase Urine 1+ (Negative); Nitrate Urine Negative (Negative); Protein Urine Neg (Negative); Urine Appearance Clear (CLEAR); Urine Color Yellow (Yellow); Urobilinogen Urine Norm (Negative); pH Urine 6 (5-7)
[2022-05-30 18:49] LABS: Bacteria Urine TRACE /hpf; RBC Urine 0-4 /hpf (0-2); Squamous Epithelial Cell Urine 0-4 /hpf (0-5); Trichomonas Urine 1+ /hpf; WBC Urine 0-4 /hpf (0-5)
[2022-05-30 18:51] LABS: Add Urine Culture? No
--- NOTE | 2022-05-30 19:33 | ED_ITS ---
HPI - Abdominal Pain General: Chief Complaint: Abdominal Pain Stated Complaint: kidney pain Time Seen by Provider: 05/30/22 19:33 History of Present Illness: Patient comes in with pelvic pain and discomfort. Patient reports that she had recently had pyelonephritis and was treated inp atient in the hospital. Patient appears nontoxic. Patient does appear in moderate pain. Patient has completing her last dose of cefdinir today. Patient does report recurrent diarrhea most likely due to the antibiotic. Associated Symptoms: Reports diarrhea Review of Systems GI: Reports: abdominal pain and diarrhea PFS ED PFSH: Surgical History No pertinent past surgical history Family History Other Hypertension Social History (Updated 05/26/22 @ 14:44 by Roberta Harris LPN) Smoking and tobacco status: former smoker Quit status (tobacco): has quit using tobacco Year quit tobacco: 2020 Alcohol intake: never Physical Exam Const: COMMON NORMALS: alert HENMT: COMMON NORMALS: normocephalic HEAD & SCALP: normocephalic Neck/C-Spine: COMMON NORMALS: full ROM Resp: COMMON NORMALS: normal respiratory effort and clear to auscultation bilaterally AUSCULTATION: clear to auscultation bilaterally Cardio: COMMON NORMALS: regular rate and regular rhythm RATE: regular rate RHYTHM: regular rhythm GI: COMMON NORMALS: Soft to palpation AUSCULTATION: Yes normoactive bowel sounds PALPATION: Yes Soft to palpation and Yes Tenderness to palpation present (GI) (Suprapubic/pelvic) : COMMON NORMALS: Yes no CVA tenderness BLADDER/KIDNEY EXAM: Yes no CVA tenderness Back/Pelvis: COMMON NORMALS: no CVA tenderness Extremity: COMMON NORMALS: normal to inspection Neuro: SENSORIUM/ORIENTATION: Yes alert Skin: COMMON NORMALS: turgor normal GENERAL SKIN EXAM: turgor normal Course Vital Signs: Vital signs: Vital Signs Temperature 98.0 F 05/30/22 17:43 Pulse Rate 109 H 05/30/22 17:43 Respiratory Rate 15 05/30/22 17:43 Pulse Oximetry 98 05/30/22 17:43 Oxygen Delivery Me thod 05/30/22 17:43 MDM - Abdominal Pain Medical Decision Making 31-year-old female comes in today with complaints of pelvic discomfort along with diarrhea stools. Patient has been on antibiotics for recent bout of pyelonephritis. Patient appears nontoxic. Abdomen is soft with some suprapubic tenderness. Differential diagnosis includes urinary tract infection, vaginitis, renal calculi, antibiotic associated colitis. Patient was recommended to drink plenty of fluids. Urinalysis showed trichomonas. Gonorrhea chlamydia was added to exam. Patient will be started on Flagyl and continued on for the next 7 days. Patient was given a dose of Zofran and morphine for her discomfort. No signs of severe illness was noted. Recommend follow-up with primary care or return to the ER for worsening symptoms. Lab Data Labs/Radiology: Laboratory Results Urine Color Yellow (Yellow) 05/30/22 18:15 Urine Appearance Clear (CLEAR) 05/30/22 18:15 Urine pH 6 (5-7) 05/30/22 18:15 Ur Specific [place] 1.010 (1.005-1.030) 05/30/22 18:15 Urine Protein Neg (Negative) 05/30/22 18:15 Urine Glucose (UA) Norm (Normal) 05/30/22 18:15 Urine Ketones Negative (Negative) 05/30/22 18:15 Urine Blood Neg (Negative) 05/30/22 18:15 Urine Nitrate Negative (Negative) 05/30/22 18:15 Urine Bilirubin Neg (Negative) 05/30/22 18:15 Urine Urobilinogen Norm mg/dL (Negative) 05/30/22 18:15 Ur Leukocyte Esterase 1+ (Negative) H 05/30/22 18:15 Urine RBC 0-4 /hpf (0-2) H 05/30/22 18:15 Urine WBC 0-4 /hpf (0-5) H 05/30/22 18:15 Ur Squamous Epith Cells 0-4 /hpf (0-5) H 05/30/22 18:15 Amorphous Sediment Not Reportable 05/30/22 18:15 Urine Bacteria Trace /hpf (NONE) 05/30/22 18:15 Urine Trichomonas 1+ /hpf H 05/30/22 18:15 Urine HCG, Qual Negative (Negative) 05/30/22 18:15 Discharge Plan Discharge Patient Disposition: Home Clinical Impression: Trichomonal infection Condition: Stable Prescriptions: New metronidazole 500 mg tablet 500 mg PO Q8H 7 Days Qty: 21 0RF ondansetron 4 mg tablet,disintegrating 4 mg PO Q8H PRN (Reason: nausea and vomiting) Qty: 7 0RF hydrocodone-acetaminophen 5-325 mg tablet 1 tab PO Q6H PRN (Reason: pain) Qty: 7 0RF No Action cefdinir 300 mg capsule 300 mg PO BID 8 Days Qty: 16 0RF Discharge Orders: Discharge ED (Routine); Ordered 05/30/22 Ordered By: Brian Al Referrals: Katlyn Mitchell NP [Primary Care Provider] - Discharge Diet: Usual diet Discharge Activity: Increase activity as tolerated Patient Instructions: Trichomoniasis (ED) Activity Restrictions/Additional Instructions: Take Flagyl as directed. Drink plenty of water and fluids. Eat a healthy diet. Use ondansetron for nausea. Use hydrocodone for pain. Follow-up with primary care in 1 week for recheck. Return to ER for worsening symptoms such as inability to hold fluids down, blood in vomit or stool, or new concerns. Coding Level of Care Code ED [facility] for [place] Fwd Exam Comprehensive
[2022-05-30] MEDS: metroNIDAZOLE 500 MG Tablet 2000 MG PO (19:48)
[2022-05-30 19:52] VITALS: RESP 20
[2022-05-30] MEDS: morphine 4 mg/mL SDV 1 mL IM (19:52)
[2022-05-30] MEDS: ondansetron 2 mg/ML SDV 2 mL 4 MG IM (19:52)
[2022-05-30 19:55] VITALS: BP 116/75; PULSE 106; TEMP 36.7; O2SAT 100
== END 2022-05-30 20:00 | disposition home or self-care (01) ==
PROVIDERS: Emergency Provider Nurse Practitioner Family; PCP Nurse Practitioner Family
DX: A59.9 Trichomoniasis, unspecified (principal); Z87.891 Personal history of nicotine dependence
CPT/HCPCS: 81001; 81025; 87491; 87591; 87661; 96372; 99284; J2270; J2405

== ENCOUNTER → 2022-06-25 15:08 | Outpatient (BNVA) | payer OTHER, SELFPAY | PROVIDERS: PCP Nurse Practitioner Family; Visit Provider Nurse Practitioner Family | DX: N18.2 Chronic kidney disease, stage 2 (mild) (principal) | CPT/HCPCS: 80053 ==